=== PATIENT | male | born 1990 | race Caucasian/White ===

== ENCOUNTER 2020-08-11 10:08 | Outpatient (REF) | payer MEDICAID, SELFPAY ==
--- NOTE | 2020-08-11 10:30 | EMG_ITS ---
Left median and ulnar motor and sensory studies were performed. Left radial sensory study was performed. Antecubital and brachial median and lateral sensory studies were performed and needle examination was performed on paraspinal and some limb muscles. IMPRESSION: 1. Mild left ulnar neuropathy across cubital tunnel. 2. No evidence of proximal neuropathy around shoulder. MD CARMELA Werner/PRICE / [id number]
== END 2020-08-11 10:09 | disposition home or self-care (01) ==
LOC: HO.NEURO 10:08
PROVIDERS: PCP Internal Medicine; Visit Provider Internal Medicine
DX: M25.512 Pain in left shoulder (principal)
CPT/HCPCS: 95860; 95886; 95910

== ENCOUNTER → 2020-08-26 09:53 | Outpatient (BNVA) | payer MEDICAID, SELFPAY | PROVIDERS: PCP Internal Medicine; Referring Provider Internal Medicine; Visit Provider Orthopaedic Surgery | DX: S43.439A Superior glenoid labrum lesion of unspecified shoulder, initial encounter (principal) | CPT/HCPCS: 99212 ==

== ENCOUNTER 2020-09-21 07:59 | Day surgery (SDC) | payer MEDICAID, SELFPAY ==
[2020-09-16 09:45] VITALS: BMI 25.6
[2020-09-21] VITALS (7 sets, daily range): BP systolic 104–135; BP diastolic 49–83; PULSE 61–88; RESP 16–18; TEMP 36.2–36.5; O2SAT 94–99
[2020-09-21] MEDS: ceFAZolin Sodium/Dextrose,Iso 2 GM/50 ML PIGGYBACK IV (08:38)
--- NOTE | 2020-09-21 09:31 | MHC.SHP ---
Pre-Procedural Eval Section A The patient is an INPATIENT: No Changes since office visit: Yes Patient answered all questions; No Cold of Flu in the past 2 weeks, No New Medical Problems and No Changes in Medication The History & Physical has been completed within 30 days and I have reviewed it.: Yes Section B Chief Complaint: superior glenoid lesion Allergies: Allergies Allergy/AdvReac Type Severity Reaction Status Date / Time aspirin [ASA] AdvReac Mild HIVES Verified 09/16/20 10:11 Plan Patient has been examined and remains a candidate for the planned procedure
--- NOTE | 2020-09-21 10:52 | HO.ANESPROP2 ---
[facility] Past Medical History Medical History (Updated 09/16/20 @ 10:09 by Deidra Banegas) Hx of transfusion of whole blood Internal derangement of left shoulder Lab test negative for COVID-19 virus SLAP tear of shoulder Family History Family History Mother No problems noted. Father No problems noted. Surgical History Surgical History (Updated 09/16/20 @ 09:53 by Deidra Banegas) History of esophagogastroduodenoscopy (EGD) Social History Social History Are you a primary child care centre director to a significant other at home: No Do you presently have visiting nurse or other home services: No Smoking Status: Never smoker Use of substances other than those prescribed or required for medical reasons: No Have you been hit, kicked, punched, or otherwise hurt by someone within the past year? If so, by whom?: No Advance Directives Information Provided: No Recently lost weight without trying: No Current occupational status: unemployed Current occupation: Right Handed Meds Allergies Allergy/AdvReac Type Severity Reaction Status Date / Time aspirin [ASA] AdvReac Mild HIVES Verified 09/16/20 10:11 Home Medications Medication Instructions Recorded Confirmed Type cyclobenzaprine PO 08/25/20 09/01/20 History gabapentin 100 mg capsule 100 mg PO BID 08/25/20 09/16/20 History tramadol 50 mg tablet 50 mg PO DAILY PRN 08/25/20 09/16/20 History Exam Exam Date and Time: September 21, 2020 1052 Height,Weight and Vital Signs: Height 5 ft 2 in Weight 63.503 kg Last Vital Signs Temp 97.7 F 09/21/20 08:34 Pulse 61 09/21/20 08:34 Resp 18 09/21/20 08:34 BP 118/61 09/21/20 08:34 Pulse Ox 99 09/21/20 08:34 Airway Mallampati Class: III TM Dist: >3cm Neck ROM: Full Heart: RRR Assessment and Plan Assessment Anesthesia Assessment: Anesthesia Plan Discussed Final Anesthetic Review NPO: Yes ASA Class: I Final Preanesthetic Review: Consent Obtained/Reviewed Anesthetic Plan Anesthetic Plan: GA and Regional Block (Supraclavicular) Disposition: Standard PACU
--- NOTE | 2020-09-21 11:45 | P.BOP_ITS ---
Brief Operative Note Date of Service: 09/21/20 Pre-op diagnosis: left shoulder SLAP tear Post-op diagnosis: other (left shoulder synovitis and acj arthritis) Procedure: anterior interval synovectomy and distal clavicle excision Implants: none Surgeon: Héctor Sotomayor MD Anesthesia: GETA and regional Clinical Nursing Director: Deborah Ireland Estimated blood loss (mL): 10 Tourniquet time (min): 0 IV fluids (mL): 500 Urine output (mL): 0 Pathology: none sent Condition: stable Disposition: PACU
--- NOTE | 2020-09-21 12:35 | P.POSTANES_ITS ---
Post Anesthesia Evaluation Post Anesthesia Evaluation Vital Signs: Vital Signs Temp Pulse Resp BP Pulse Ox 09/21/20 12:20 97.1 F 74 16 128/83 09/21/20 12:05 79 16 123/74 94 09/21/20 11:50 69 18 104/55 L 96 09/21/20 11:44 76 18 122/73 96 09/21/20 11:40 70 18 109/49 L 96 09/21/20 11:35 97.4 F 88 16 135/80 96 09/21/20 08:34 97.7 F 61 18 118/61 99 Anesthesia: Nerve Block (Left supraclavicular block) and General Endotracheal- GETA Mental Status: Awake Pain Control: Satisfactory Nausea/Vomiting: None Hydration: Adequate Anesthesia-Related Issues: No Anes. Related Issues
--- NOTE | 2020-09-21 13:13 | PC.NURSE ---
instructions done with finger lift operator
--- NOTE | 2020-09-26 14:15 | OP_ITS ---
SURGEON: Héctor Sotomayor MD INDICATIONS: This is a 30-year-old gentleman with ongoing left shoulder pain. He was consented to undergo operative intervention after the failure of conservative measures. Preoperative MRI was unremarkable for significant labral injury, but there was AC joint inflammation. He was consented to undergo possible SLAP repair and shoulder arthroscopy. PREOPERATIVE DIAGNOSIS: Left shoulder SLAP tear. POSTOPERATIVE DIAGNOSIS: PROCEDURE PERFORMED: Anterior interval synovectomy with distal clavicle excision. ESTIMATED BLOOD LOSS: 10 mL. COMPLICATIONS: None. ANESTHESIA: Regional and general. ASSISTANTS: OLIVIA Eldridge. SPECIMENS: POSTOPERATIVE DIAGNOSES: Left shoulder synovitis and acromioclavicular joint arthritis. FLUIDS: 500. PROCEDURE IN DETAIL: The patient was brought to the operating room, placed in the beach chair position. All bony prominences were well padded ad he was prepped and draped in standard sterile fashion. Time-out was called to identify proper site, proper procedure, proper surgeon. IV antibiotics per weight was administered. I began by making a stab incision posterolaterally and placing my blunt trocar atraumatically into the glenohumeral joint. I then established an outside-in anterosuperior portal under direct visualization. I insufflated the joint, placed my 30-degree arthroscope. He had no chondral lesions to speak of and the undersurface of the rotator cuff was pristine. Biceps and labral anchor and circumferential labral was pristine. There was notable anterior interval synovitis. The subscapularis was intact. I therefore debrided out the synovitis of the anterior interval and assessed the labrum both distally, both circumferentially and at the anchor and the biceps as it dove into the groove and it was pristine. After the synovectomy, I went to subacromial space and assessed the AC joint. This was arthritic and therefore I performed a 5 mm distal clavicle excision with a bur through the anterior portal. Once this was done, I irrigated copiously, removed all instrumentation and closed the portals with nylon. The patient was placed in sterile dressing, awakened from anesthesia, brought to recovery room in stable condition. There were no known complications. GRAFT OR IMPLANTS: None. MD HAYDEN Vinson/TRACIL / [id number]
== END 2020-09-21 13:13 | disposition home or self-care (01) ==
PROVIDERS: PCP Internal Medicine; Visit Provider Orthopaedic Surgery
PROC: (CPT 29805; principal; 2020-09-21 09:50)
DX: M65.812 Other synovitis and tenosynovitis, left shoulder (principal); M19.012 Primary osteoarthritis, left shoulder
CPT/HCPCS: 29824; 29822; J0330; J0690; J1100; J2250; J2405; J3010

== ENCOUNTER → 2020-10-05 13:18 | Outpatient (BNVA) | payer MEDICAID, SELFPAY | PROVIDERS: PCP Internal Medicine; Referring Provider Internal Medicine; Visit Provider Physician Assistant | DX: M19.012 Primary osteoarthritis, left shoulder (principal); M65.812 Other synovitis and tenosynovitis, left shoulder | CPT/HCPCS: 99212 ==

== ENCOUNTER → 2020-12-08 13:52 | Outpatient (BNVA) | payer MEDICAID, SELFPAY | PROVIDERS: Visit Provider Orthopaedic Surgery | DX: M19.012 Primary osteoarthritis, left shoulder (principal); M65.812 Other synovitis and tenosynovitis, left shoulder | CPT/HCPCS: 99212 ==

== ENCOUNTER 2021-01-18 11:00 | Outpatient (RCR) | payer MEDICAID, SELFPAY ==
--- NOTE | 2020-10-21 16:15 | MHC.PT.EP ---
[facility] [place] Office [place] Office [place] Office [address] Joselito Lima [address] [phone] F: [phone] F: [phone] F: [phone] F: [phone] Physical Therapy Plan of Care Date of Evaluation: 10/21/20 Date of Surgery: 09/21/20 Diagnosis: L SHLDER SURGERY (ANTERIOR INTERVAL SYNOVECTOMY AND DCE) ON 09/21/20 Assessment: Pt IS 30 YO RHD M REFERRED TO PT S/P L SHLDER SURGERY PER ORTHO (SUNOVECTOMY AND DCE) ON 09/21/20. Pt REPORTS INITIAL INJURY TO SHLDER AT WORK IN NOV 2019. HAD PT HERE FROM 01/18-03/01/20 WITHOUT RELIEF, HAD CORTISONE INJECTION. NOW PRESENTS WEARING SLING (Pt REPORTS WAS TOLD BY ORTHO TO WEAR ONLY WHEN NEEDED) WITH DECREASED L SHLDER ROM AND STRENGTH WITH PAIN AND LIMITED FUNCTIONAL USE. SHOULD BENEFIT FROM PT TO ADDRESS THESE ISSUES Frequency and Duration: The patient will be seen 2X/WK X 6 WKS Short Term Goals: 1. INCREASED AWARENESS SHLDER CARE 2. NO USE SLING 3. IMPROVED SLEEP Alf Goals: 1. L SHLDER AROM L SHLDER FLEX TO 150 DEGREES, ABD TO 150, ER TO 75 DEGREES AT 90 DEGREES ABD 2. I HEP WITH DC EX PLAN 3. RTW 4, INCREASED L SHLDER STRENGTH 1 MM GRADE 5. IMPROVED SPADI Treatment Plan: Modalities to reduce pain, spasms and effusion. Manual therapy to restore motion and function. Therapeutic exercise to improve strength and flexibility. Neuromuscular re-education for posture and balance. Therapeutic activities to return to functional activities of daily living. Electronically signed by: MERRY SALEH PT Please sign and return to therapist. Thank you for your referral.
--- NOTE | 2021-02-25 10:55 | MHC.PT.DC ---
[facility] [place] Office [place] Office [place] Office [address] Joselito Lima [address] [phone] F: [phone] F: [phone] F: [phone] F: [phone] Physical Therapy Discharge Report Diagnosis: L SHLDER SURGERY (ANTERIOR INTERVAL SYNOVECTOMY AND DCE) ON 09/21/20 Date of Surgery: 09/21/20 Date of Evaluation: 10/21/20 Date of Discharge: 02/25/21 Treatments to Date: 11 Cancellations to Date: 0 No Shows to Date: 0 Discharge Status: Patient Elected to Stop Discharge Summary: Pt LAST SEEN ON 01/18/21 WHEN HE REPORTED (PER NOTE BY LUPILLO MAHONEY PTA) INTEMITTENT PAIN IN SHLDER (BUT WAS ABLE TO PARTICIPATE IN PT SESSION WITH EXERCISE PROGRAM). Pt HAD FU WITH ORTHO THEN HE CALLED TO SAY HAVING MRI AND ORTHO WANTED HIM TO STOP TREATMENT (PER ANEESH AT INTERNATIONAL LOGISTICS COORDINATOR) ALTHOUGH THE LAST OFFICE NOTE FROM ORTHO REPORTS:Freddy Sotomayor MD: incomplete improvement after shoulder arthroscopy. I reveiwed MRI again and intra-operative findings. No evidence of ongoing internal derangement. Will continue strengtheing and re-assess at the 6 month time point. Electronically signed by: MERRY SALEH PT Please sign and return to therapist. Thank you for your referral.
--- NOTE | 2021-02-25 10:57 | MHC.PT.DC ---
[facility] [place] Office [place] Office [place] Office [address] Joseilto Lima [address] [phone] F: [phone] F: [phone] F: [phone] F: [phone] Physical Therapy Discharge Report Diagnosis: L SHLDER SURGERY (ANTERIOR INTERVAL SYNOVECTOMY AND DCE) ON 09/21/20 Date of Surgery: 09/21/20 Date of Evaluation: 10/21/20 Date of Discharge: 02/25/21 Treatments to Date: 11 Cancellations to Date: 0 No Shows to Date: 0 Discharge Status: Patient Elected to Stop Discharge Summary: Pt LAST SEEN ON 01/18/21 WHEN HE REPORTED (PER NOTE BY LUPILLO MAHONEY PTA) INTEMITTENT PAIN IN SHLDER (BUT WAS ABLE TO PARTICIPATE IN PT SESSION WITH EXERCISE PROGRAM). Pt HAD FU WITH ORTHO THEN HE CALLED TO SAY HAVING MRI AND ORTHO WANTED HIM TO STOP TREATMENT (PER ANEESH AT MOBILE CRANE OPERATOR) ALTHOUGH THE LAST OFFICE NOTE FROM ORTHO REPORTS:Freddy Sotomayor MD: incomplete improvement after shoulder arthroscopy. I reveiwed MRI again and intra-operative findings. No evidence of ongoing internal derangement. Will continue strengtheing and re-assess at the 6 month time point. Electronically signed by: MERRY SALEH PT Please sign and return to therapist. Thank you for your referral.
== END 2021-02-25 10:55 | disposition other institution (70) ==
LOC: HO.PT 11:00
PROVIDERS: PCP Internal Medicine; Visit Provider Physician Assistant
DX: M65.812 Other synovitis and tenosynovitis, left shoulder (principal); M19.012 Primary osteoarthritis, left shoulder
CPT/HCPCS: 97110; 97140; 97162; 97530

== ENCOUNTER → 2021-01-19 13:26 | Outpatient (BNVA) | payer MEDICAID, SELFPAY | PROVIDERS: Visit Provider Orthopaedic Surgery | DX: M65.812 Other synovitis and tenosynovitis, left shoulder (principal) | CPT/HCPCS: 99212 ==

== ENCOUNTER → 2021-04-06 14:43 | Outpatient (BNVA) | payer MEDICAID, SELFPAY | PROVIDERS: Visit Provider Orthopaedic Surgery | DX: M65.812 Other synovitis and tenosynovitis, left shoulder (principal); S43.432A Superior glenoid labrum lesion of left shoulder, initial encounter; X58.XXXA Exposure to other specified factors, initial encounter; Y93.9 Activity, unspecified; Y92.9 Unspecified place or not applicable; Y99.8 Other external cause status; M24.812 Other specific joint derangements of left shoulder, not elsewhere classified; Z88.6 Allergy status to analgesic agent | CPT/HCPCS: 99212 ==

== ENCOUNTER 2021-04-27 13:29 | Outpatient (REF) | payer MEDICAID, SELFPAY ==
--- NOTE | ~2021-04-27 | MR_ITS ---
EXAMINATION: MR SHOULDER WITH CONTRAST, LEFT CLINICAL INFORMATION: Left shoulder pain. COMPARISON: 08/03/2020 TECHNIQUE: MRI of the shoulder was performed following the intra-articular administration of a dilute gadolinium-containing solution (arthrogram) on a high-field scanner. FINDINGS: ROTATOR CUFF: There is subscapularis insertional tendinosis, possibly ill-defined undersurface partial tearing demonstrated on axial image 14 which is a new finding. The coracohumeral distance also appears narrow, approximately 5-6 mm. The supraspinatus, infraspinatus, and teres minor tendons appear intact. No muscle atrophy or fatty infiltration. BICEPS: Normal. CORACOACROMIAL ARCH: The undersurface of the acromion is curved with no subacromial spur. There is mild acromioclavicular osteoarthritis which is more conspicuous. LABRUM/CAPSULE: There is superficial fraying of the posterior superior labrum demonstrated on axial images 10-11 which is a new finding. The labrum appears otherwise intact. GLENOHUMERAL JOINT/MARROW: There is new cyst formation of the posterior greater tuberosity, as well as the anterior superior humeral head. MR/MR shoulder LT w con IMPRESSION: There are new small cysts at the posterior aspect of the greater tuberosity and possible superficial fraying of the posterior superior labrum. These findings can be associated with internal impingement, typically in throwing athletes. The infraspinatus and supraspinatus tendons appear intact. There is subscapularis insertional tendinosis and possible undersurface fraying which is a new finding. The coracohumeral distance is narrow, approximately 5-6 mm. Clinically correlate for symptoms of subcoracoid impingement. There is a new degenerative cyst of the anterior superior humeral head. Mild acromioclavicular osteoarthritis.
--- NOTE | ~2021-04-27 | FL_ITS ---
EXAMINATION: XR ARTHROGRAM SHOULDER, LEFT CLINICAL INFORMATION: Synovitis and tenosynovium by this left shoulder COMPARISON: MRI of August 03, 2020 and plain film study of August 03, 2020. TECHNIQUE: Fluoroscopic guided intra-articular injection of the left shoulder. FINDINGS: Informed consent was obtained from the patient prior to the procedure. During this process, the procedure and potential alternatives were explained, along with the intended outcome and benefits. The risks of the procedure, as well as the risk of not doing the procedure, were discussed. The patient was given the opportunity to ask questions regarding the procedure and appeared competent to make medical decisions. A signed consent form which documents this discussion was placed in the medical record. Using sterile technique and fluoroscopic guidance a 22-gauge spinal needle was directed down onto the inferior third of the left glenohumeral joint. Contrast was injected demonstrating intra-articular positioning of the needle. A total of 18 mL of a mixture of 20 mL of normal saline with 0.1 mL of Gadavist was then injected into the left shoulder joint. Patient tolerated procedure without difficulty. FLUOROSCOPY TIME: 1.2 minutes DOSE AREA PRODUCT: 4.613 Gy-cm2 (raymond-centimeter squared) FL/FL arthrogram shoulder LT IMPRESSION: Fluoroscopic guided intra-articular injection of contrast for MRI.
== END 2021-04-27 13:30 | disposition home or self-care (01) ==
LOC: HO.XRAY 13:29
PROVIDERS: Visit Provider Orthopaedic Surgery
DX: M65.812 Other synovitis and tenosynovitis, left shoulder (principal)
CPT/HCPCS: 23350; 73040; 73222; A9585

== ENCOUNTER → 2021-06-02 11:18 | Outpatient (BNVA) | payer MEDICAID, SELFPAY | PROVIDERS: Visit Provider Orthopaedic Surgery ==

== ENCOUNTER → 2021-06-05 08:15 | Outpatient (BNVA) | payer MEDICAID, SELFPAY | PROVIDERS: Visit Provider Orthopaedic Surgery | DX: M65.812 Other synovitis and tenosynovitis, left shoulder (principal) | CPT/HCPCS: 99212 ==

== ENCOUNTER → 2021-08-07 14:52 | Outpatient (BNVA) | payer MEDICAID, SELFPAY | PROVIDERS: PCP Internal Medicine; Visit Provider Orthopaedic Surgery | DX: M67.912 Unspecified disorder of synovium and tendon, left shoulder (principal) | CPT/HCPCS: 99212 ==

== ENCOUNTER 2023-10-17 08:05 | Outpatient (REF) | payer MEDICAID, SELFPAY ==
[2023-10-17 11:35] LABS: MANUAL DIFF FLAG NO
[2023-10-17 12:04] LABS: Estimated Average Glucose 105 mg/dL; Hemoglobin A1c % 5.3 % (<6.0)
[2023-10-17 12:05] LABS: Basophils Percent Auto 0.4 % (0-2); Eosinophils Absolute Auto 0.3 X10*3/uL (0.0-0.4); Eosinophils Percent Auto 5.5 % (0-4); Hematocrit 46.5 % (42.0-52.0); Hemoglobin 15.1 g/dl (14.0-18.0); Imm Gran Abs Auto 0.02 X10*3/uL (0.00-0.03); Imm Gran Pct Auto 0.4 % (0.0-0.4); Lymphocytes Absolute Auto 1.1 X10*3/uL (1.2-4.9); Lymphocytes Percent Auto 19.8 % (20-40); Mean Corpuscular HGB Conc 32.5 g/dl (31.0-36.0); Mean Corpuscular Volume 89.4 fL (80.0-98.0); Mean Platelet Volume 11.8 fL (9.4-12.4); Monocytes Absolute Auto 0.5 X10*3/uL (0.1-1.2); Monocytes Percent Auto 9.6 % (2-11); Neutrophils Absolute Auto 3.4 x10*3/uL (2.0-8.3); Neutrophils Percent Auto 64.3 % (45-73); Platelet Count 223 X10*3/uL (160-400); Red Cell Distribution Width 12.8 % (11.0-16.0); White Blood Count 5.3 X10*3/uL (4.8-10.8)
[2023-10-17 12:26] LABS: Alanine Aminotransferase 38 U/L (0-40); Albumin Level 4.5 g/dL (3.5-5.0); Alkaline Phosphatase 84 U/L (39-117); Anion Gap 14 (12-20); Aspartate Amino Transferase 25 U/L (5-37); Bilirubin Direct 0.2 mg/dL (0.0-0.5); Bilirubin Total 0.3 mg/dL (0.0-1.0); Blood Urea Nitrogen 16 mg/dL (9-16); Calcium 9.4 mg/dL (8.4-10.2); Carbon Dioxide 26 mmol/L (22-29); Chloride 105 mmol/L (96-108); Cholesterol 111 mg/dL (<200); Estimated Glomerular Filt Rate > 60; Glucose Random 91 mg/dL (60-115); HDL Cholesterol 33 mg/dL (>40); LDL Cholesterol Calculated 65 mg/dL (<100); Potassium 3.8 mmol/L (3.3-5.1); Sodium 141 mmol/L (135-145); Total Protein 7.7 g/dL (6.5-8.0); Triglycerides 66 mg/dL (<150)
[2023-10-17 13:46] LABS: CT PCR NOT DETECTED (Not Detect.); NG PCR NOT DETECTED (Not Detect.)
[2023-10-18 07:39] LABS: HIV AB/AG Nonreactive (Nonreactive); HIV Num 1 0.04 S/CO (0.00-0.99); ~HepC Num1 0.08 S/CO (0.00-0.79); ~Hepatitis C Antibody Nonreactive (Nonreactive)
[2023-10-21 09:28] LABS: RPR Rapid Plasma Reagin NON-REACTIVE (NON-REACTIVE)
== END 2023-10-17 08:06 | disposition home or self-care (01) ==
LOC: HO.HHCL 08:05
PROVIDERS: Visit Provider Internal Medicine
DX: Z00.00 Encounter for general adult medical examination without abnormal findings (principal); Z11.4 Encounter for screening for human immunodeficiency virus [HIV]; Z11.3 Encounter for screening for infections with a predominantly sexual mode of transmission
CPT/HCPCS: 0353U; 36415; 80048; 80061; 80076; 83036; 85025; 86592; 86803; 87389

== ENCOUNTER 2023-10-19 04:51 | Emergency (ER) | payer MEDICAID, SELFPAY ==
[2023-10-19 04:51] VITALS: BP 113/76; PULSE 85; RESP 18; TEMP 37.1; O2SAT 96; BMI 28.9
--- NOTE | 2023-10-19 05:05 | PC.NURSE ---
Patient presenting to ED from home for evaluation of nausea and diarrhea x3 days. Patient is also endorses diffuse abdominal pain. Patient reports taking Pepto Bismol prior to arrival to ED. Dr. Jasmine at bedside assessing patient. 20 G IV line placed in L AC, labs drawn and sent to lab for processing. Patient medicated per JAN. Call rodriguez within rodriguez within patient's reach.
--- NOTE | 2023-10-19 05:11 | ED.ABDPAIN ---
HPI - Abdominal Pain General Chief Complaint: Abdominal Pain Stated Complaint: Gen Med Time Seen by Provider: 10/19/23 04:54 History of Present Illness HPI narrative: Patient is a 33-year-old male presents today with having nausea vomiting diarrhea generalized malaise. There has been no change in patient's diet no new antibiotics no travel history patient is from home. Diarrhea mostly yellow watery in color. No blood. Positive diffuse abdominal aches. No focal pain. No abdominal surgery done in the past Related Data Home Medications Medication Instructions Recorded Confirmed cyclobenzaprine [Flexeril] PO 08/25/20 09/01/20 gabapentin 100 mg capsule 100 mg PO BID 08/25/20 09/16/20 Previous Rx's Medication Instructions Recorded oxycodone-acetaminophen 5 mg-325 1 tab PO Q12H PRN pain 7 days #14 10/25/20 mg tablet (Percocet) tabs naproxen 500 mg tablet,delayed 500 mg PO BID PRN pain #60 tabs 06/05/21 release (EC-Naprosyn) ondansetron 4 mg disintegrating 4 mg PO TID PRN nausea and 10/19/23 tablet vomiting 5 days #10 tabs Allergies Allergy/AdvReac Type Severity Reaction Status Date / Time aspirin [ASA] AdvReac Mild HIVES Verified 10/19/23 04:57 Review of Systems Review of Systems Positive nausea positive diarrhea positive generalized malaise Yes all other systems are reviewed and are negative FOR[facility] Past Medical History Attestation statement: The following information was validated with the patient. Medical History Lab test negative for COVID-19 virus Hx of transfusion of whole blood SLAP tear of shoulder Internal derangement of left shoulder Surgical History History of shoulder surgery History of esophagogastroduodenoscopy (EGD) Family History Family History Mother No problems noted. Father No problems noted. Social History Social History Are you a primary child care lead teacher to a significant other at home: No Do you presently have visiting nurse or other home services: No Smoked in Last 30 Days: No Use of substances other than those prescribed or required for medical reasons: No Advance Directives: No Advance Directives Information Provided: No Current occupational status: unemployed Current occupation: Right Handed Physical Exam ED Vital Signs: Vital Signs - 24 hr 10/19/23 04:51 10/19/23 05:26 Temperature 98.8 F 98.3 F Pulse Rate 85 70 Respiratory Rate 18 16 Blood Pressure 113/76 140/69 H Pulse Oximetry 96 98 Oxygen Delivery Method Room Air Room Air BMI result Body Mass Index 28.9 Appearance: Alert. Oriented X3. No acute distress. Eyes: Pupils equal, round and reactive to light. ENT: Pharynx normal. Neck: Normal inspection. Neck supple. No lymph nodes noted. No crepitus CVS: Normal heart rate and rhythm. Pulses normal. Normal S1 and S2 Respiratory: No respiratory distress. Breath sounds normal. No Wheezing. No rales Abdomen: Soft and nontender. No rigidity. No distention. good BS x4 Skin: Skin warm and dry. Normal skin color. Normal skin turgor. Extremities: No lower extremity edema. Neurovascular intact to all extremities. No Lacerations. No Rash Neuro: Oriented X 3. No motor deficit. No sensory deficit. Moving all extermities. No slurred speech Medical Decision Making Medical Decision Making [facility] Narrative: Patient has nausea and diarrhea repeat abdominal exam is soft nontender. [place] the risk of appendicitis is low. Question related to food. No recent antibiotics. No systemic complaints. Electrolytes unremarkable given IV fluids Zofran for nausea with good results. Will discharge home Differential Diagnosis Differential Diagnoses: The differential diagnosis associated with the presentation includes Appendicitis, gastroenteritis, diverticulitis, Admission/Observation Consideration of admission/observation: Escalation of care including admission/observation considered No need for admission is patient well appearing symptom improved Lab Data [facility] Lab Attestation statement: I reviewed the patient's lab results. 10/19/23 05:14 10/19/23 05:14 Labs: Lab Results 10/19/23 Range/Units 05:14 WBC 5.9 (4.8-10.8) X10*3/uL RBC 5.28 (4.60-5.80) X10*6/uL Hgb 15.2 (14.0-18.0) g/dl Hct 45.3 (42.0-52.0) % MCV 85.8 (80.0-98.0) fL MCH 28.8 (27.0-33.0) pg MCHC 33.6 (31.0-36.0) g/dl RDW 12.5 (11.0-16.0) % Plt Count 190 (160-400) X10*3/uL MPV 10.6 (9.4-12.4) fL Immature Gran % (Auto) 0.3 (0.0-0.4) % Neut % (Auto) 77.8 H (45-73) % Lymph % (Auto) 9.0 L (20-40) % [place] % (Auto) 10.7 (2-11) % Eos % (Auto) 2.0 (0-4) % Baso % (Auto) 0.2 (0-2) % Lymph # (Auto) 0.5 L (1.2-4.9) X10*3/uL [place] # (Auto) 0.6 (0.1-1.2) X10*3/uL Eos # (Auto) 0.1 (0.0-0.4) X10*3/uL Baso # (Auto) 0.0 (0.0-0.2) X10*3/uL Abs Immat Gran (auto) 0.02 (0.00-0.03) X10*3/uL Absolute Neuts (auto) 4.6 (2.0-8.3) x10*3/uL Absolute Nucleated RBC 0.000 (0.0-0.012) X10*3/uL Nucleated RBC % (auto) 0.0 (0.0-0.2) /100WBC Sodium 141 (135-145) mmol/L Potassium 3.9 (3.3-5.1) mmol/L Chloride 111 H (96-108) mmol/L Carbon Dioxide 21 L (22-29) mmol/L Anion Gap 13 (12-20) BUN 14 (9-16) mg/dL Creatinine 0.95 (0.5-1.4) mg/dL Estim Creat Clear Calc 97.8 Estimated GFR > 60 Random Glucose 107 (60-115) mg/dL Calcium 9.2 (8.4-10.2) mg/dL Total Bilirubin 0.3 (0.0-1.0) mg/dL AST 27 (5-37) U/L ALT 45 H (0-40) U/L Alkaline Phosphatase 84 (39-117) U/L Total Protein 7.8 (6.5-8.0) g/dL Albumin 4.5 (3.5-5.0) g/dL Lipase 12 (8-78) U/L Prescription Management I considered prescription management with: Antibiotic (Not need) Medications Administered Discontinued Medications Generic Name Dose Route Start Last Admin Trade Name Freq PRN Reason Stop Dose Admin Sodium Chloride 1,000 mls @ 999 mls/hr 10/19/23 05:15 10/19/23 06:21 Ns IV 10/19/23 06:15 Infused .Q1H1M FARZAD Infusion Ketorolac Tromethamine 15 mg 10/19/23 05:10 10/19/23 05:19 Ketorolac Tromethamine 15 Mg/Ml Vial IVPUSH 10/19/23 05:11 15 mg ONCE ONE Administration Ondansetron HCl 4 mg 10/19/23 05:10 10/19/23 05:19 Ondansetron Hcl 4 Mg/2 Ml Vial IVPUSH 10/19/23 05:11 4 mg ONCE ONE Administration Discharge Plan Discharge Clinical Impression: Nausea, Diarrhea Patient Disposition: Home, Self-Care Instructions: Acute Nausea and Vomiting (ED), Acute Diarrhea (ED) Prescriptions: New ondansetron 4 mg tablet,disintegrating 4 mg PO TID PRN (Reason: nausea and vomiting) 5 Days Qty: 10 0RF No Action oxycodone-acetaminophen [Percocet] 5-325 mg tablet 1 tab PO Q12H PRN (Reason: pain) 7 Days Qty: 14 0RF gabapentin 100 mg capsule 100 mg PO BID cyclobenzaprine PO naproxen [EC-Naprosyn] 500 mg tablet,delayed release (DR/EC) 500 mg PO BID PRN (Reason: pain) Qty: 60 0RF Referrals: Brenda Robbins MD [Primary Care Provider] - 10/21/23
[2023-10-19 05:19] LABS: Basophils Percent Auto 0.2 % (0-2); Eosinophils Absolute Auto 0.1 X10*3/uL (0.0-0.4); Hematocrit 45.3 % (42.0-52.0); Hemoglobin 15.2 g/dl (14.0-18.0); Imm Gran Abs Auto 0.02 X10*3/uL (0.00-0.03); Imm Gran Pct Auto 0.3 % (0.0-0.4); Lymphocytes Absolute Auto 0.5 X10*3/uL (1.2-4.9); MANUAL DIFF FLAG NO; Mean Corpuscular HGB Conc 33.6 g/dl (31.0-36.0); Mean Corpuscular Hemoglobin 28.8 pg (27.0-33.0); Mean Corpuscular Volume 85.8 fL (80.0-98.0); Mean Platelet Volume 10.6 fL (9.4-12.4); Monocytes Absolute Auto 0.6 X10*3/uL (0.1-1.2); Monocytes Percent Auto 10.7 % (2-11); Neutrophils Absolute Auto 4.6 x10*3/uL (2.0-8.3); Neutrophils Percent Auto 77.8 % (45-73); Platelet Count 190 X10*3/uL (160-400); Red Blood Count 5.28 X10*6/uL (4.60-5.80); Red Cell Distribution Width 12.5 % (11.0-16.0); White Blood Count 5.9 X10*3/uL (4.8-10.8)
[2023-10-19] MEDS: Ketorolac Tromethamine 15 MG/ML VIAL IVPUSH (05:19)
[2023-10-19] MEDS: ondansetron HCL 4 MG/2 ML VIAL IVPUSH (05:19)
[2023-10-19] MEDS: 0.9 % Sodium Chloride 1,000 ML 999 ML IV (05:20)
[2023-10-19 05:26] VITALS: BP 140/69; PULSE 70; RESP 16; TEMP 36.8; O2SAT 98
[2023-10-19 05:35] LABS: Alanine Aminotransferase 45 U/L (0-40); Albumin Level 4.5 g/dL (3.5-5.0); Alkaline Phosphatase 84 U/L (39-117); Anion Gap 13 (12-20); Aspartate Amino Transferase 27 U/L (5-37); Bilirubin Total 0.3 mg/dL (0.0-1.0); Blood Urea Nitrogen 14 mg/dL (9-16); Calcium 9.2 mg/dL (8.4-10.2); Carbon Dioxide 21 mmol/L (22-29); Chloride 111 mmol/L (96-108); Creatinine Clr Calc Pharmacy 97.8; Estimated Glomerular Filt Rate > 60; Glucose Random 107 mg/dL (60-115); Lipase 12 U/L (8-78); Potassium 3.9 mmol/L (3.3-5.1); Sodium 141 mmol/L (135-145); Total Protein 7.8 g/dL (6.5-8.0)
[2023-10-19 06:00] VITALS: BP 130/70; PULSE 79; RESP 18; TEMP 36.8; O2SAT 98
== END 2023-10-19 06:52 | disposition home or self-care (01) ==
PROVIDERS: Emergency Provider Emergency Medicine Emergency Medical Services; PCP Internal Medicine
DX: R11.2 Nausea with vomiting, unspecified (principal); R19.7 Diarrhea, unspecified
CPT/HCPCS: 36415; 80053; 83690; 85025; 96361; 96374; 96375; 99284; 99285; J1885; J2405

== ENCOUNTER 2023-11-28 13:41 | Outpatient (AMB) | payer MEDICAID, SELFPAY ==
--- NOTE | 2023-11-28 13:42 | A.OFFVIS_ITS ---
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 Accompanied by: Self / Same As Patient Allergies aspirin [ASA] Adverse Reaction (Mild, Verified 11/28/23 13:43) HIVES Medication List - Last Reconciled 11/28/23 by Oksana Grimaldo MD clotrimazole-betamethasone 1-0.05 % 1 appl topical BID 2 weeks cyclobenzaprine (Flexeril) PO PRN gabapentin 100 mg PO BID PRN naproxen (EC-Naprosyn) 500 mg PO BID PRN omeprazole 40 mg PO QAM tramadol 50 mg PO Q12H PRN HPI HPI Comments History of Present Illness Details 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 Father No problems noted. Social History Are you a primary foster care case manager to a significant other at home: No Do you presently have visiting nurse or other home services: No Current occupational status: unemployed Current occupation: Right Handed Review of Systems Const All systems reviewed & are unremarkable except as noted in HPI and below Reports no additional complaints Eyes Reports no additional complaints ENT Reports no additional complaints Card Denies dyspnea Resp Denies cough and Denies dyspnea GI Reports no additional complaints Musc Reports no additional complaints Skin/Breast Denies rash and Denies unusual bruising Neuro Reports no additional complaints Psych Reports no additional complaints Endo Reports no additional complaints Franco/Lymph Reports no additional complaints Aller/Immun Reports no additional complaints Physical Exam Const General: healthy appearing, no acute distress and well developed Orientation/consciousness: patient oriented x3 HEENT Head: Yes normocephalic and Yes atraumatic Eyes Conjunctivae: conjunctivae normal Neck Neck: Yes normal visual inspection Chest Chest palpation & inspection: normal inspection of the chest Resp Effort & Inspection: normal respiratory effort Cardio Rate: regular rate GI Inspection: Yes normal to inspection Palpation (GI): Soft to palpation Penis: uncircumcised, non retractile foreskin and phimosis Scrotum: scrotum normal Skin General skin exam: no rashes or lesions noted Neuro General: patient oriented x3 Extrem General: No pedal edema Psych Appearance: grossly normal Affect: normal affect Assessment & Plan Assessment & Plan (1) Phimosis: Code(s): N47.1 - Phimosis (2) Balanitis: Code(s): N48.1 - Balanitis Plan lotrisone cream sched circumcision Orders: Orders AMB Urinalysis Automated 11/28/23 Z13.9 - Encounter for screening, unspecified Medications: New clotrimazole-betamethasone 1-0.05 % 1 appl topical BID 45 grams 1RF 2 weeks Coding Level of Care Code New Pt Level 4 (21435) Diagnoses Phimosis N47.1 Balanitis N48.1
== END 2023-11-28 14:46 | disposition home or self-care (01) ==
PROVIDERS: PCP Internal Medicine; Visit Provider Urology
DX: N47.1 Phimosis (principal); N48.1 Balanitis
CPT/HCPCS: 99204

== ENCOUNTER → 2023-11-28 13:41 | Outpatient (BNVA) | payer MEDICAID, SELFPAY | PROVIDERS: PCP Internal Medicine; Visit Provider Urology | DX: N47.1 Phimosis (principal); N48.1 Balanitis | CPT/HCPCS: 99202 ==

== ENCOUNTER 2023-12-24 06:04 | Day surgery (SDC) | payer MEDICAID, SELFPAY ==
[2023-12-18 13:18] VITALS: BMI 29.6
[2023-12-24 06:21] VITALS: BMI 30.1
[2023-12-24 06:24] VITALS: PULSE 56; RESP 18; TEMP 36.1; O2SAT 98
[2023-12-24] MEDS: Lactated Ringers 1,000 ML 50 ML IVCONT (06:43)
--- NOTE | 2023-12-24 07:16 | P.CONAN_ITS ---
HPI - Anesthesia Eval Consult details Narrative: for circumcision PMFSH Active Problems Active Problems: All Active Problems (Updated 11/28/23 @ 23:58 by Oksana Grimaldo MD) Balanitis (Acute) Phimosis (Acute) Dysfunction of left rotator cuff (Acute) Osteoarthritis of left acromioclavicular joint (Acute) Synovitis of left shoulder (Acute) SLAP tear of shoulder (Acute) Past Medical History Medical History Lab test negative for COVID-19 virus Hx of transfusion of whole blood SLAP tear of shoulder Internal derangement of left shoulder Family History Family History Mother No problems noted. Father No problems noted. Family history of problems with anesthesia: No Surgical History Surgical History History of shoulder surgery History of esophagogastroduodenoscopy (EGD) History of Problems with Anesthesia: No Social History Social History Are you a primary physician assistant primary care to a significant other at home: No Do you presently have visiting nurse or other home services: No Patient Tobacco Use Status: Never used Tobacco Use of substances other than those prescribed or required for medical reasons: No Are you DNR?: No Advance Directives: No Advance Directives Information Provided: Yes Current occupational status: unemployed Current occupation: Right Handed Meds Allergies Allergy/AdvReac Type Severity Reaction Status Date / Time aspirin [ASA] AdvReac Mild HIVES Verified 11/28/23 13:43 Active Medications: Current Medications Lactated Ringer's (Lr) 1,000 mls @ 50 mls/hr IVCONT .Q20H FARZAD Last Admin: 12/24/23 06:43 Dose: 50 mls/hr Home Medications Medication Instructions Recorded Confirmed Last Taken Type cyclobenzaprine [Flexeril] 1 tab PO BID PRN Muscle Spasm 11/28/23 12/24/23 U nknown History omeprazole 40 mg capsule,delayed 40 mg PO QAM 11/28/23 12/24/23 Unknown History release tramadol 50 mg tablet 50 mg PO Q12H PRN severe pain 11/28/23 12/24/23 Unknown History clotrimazole-betamethasone 1 1 appl topical BID PRN Rash 12/24/23 12/24/23 Unknown History %-0.05 % topical cream Exam Height,Weight and Vital Signs: Height 5 ft 2 in Weight 74.571 kg Last Vital Signs Temp 96.9 F 12/24/23 06:24 Pulse 56 12/24/23 06:24 Resp 18 12/24/23 06:24 Pulse Ox 98 12/24/23 06:24 O2 Del Method Room Air 12/24/23 06:24 Airway Mallampati Class: I TM Dist: >3cm Neck ROM: Full Loose/Missing/Broken Teeth: No Heart: ok Lungs: ok Assessment and Plan Assessment Anesthesia Assessment: Anesthesia Plan Discussed and Chart Reviewed Final Anesthetic Review Family History of Problems with Anesthesia: No History of Problems with Anesthesia: No NPO: Yes ASA Class: II Final Preanesthetic Review: No Changes in Pt Med Stat, Meds/Allgs Chart Reviewed, Consent Obtained/Reviewed and Anes Risks/Benef Reviewed Patient Risk: Low Anesthetic Plan Anesthetic Plan: GA and Agree w/ Assess. and Plan Disposition: Standard PACU
--- NOTE | 2023-12-24 07:19 | MHC.SHP ---
Pre-Procedural Eval Section A - 24 Hr Update-Section A only Date of Service: 12/24/23 The patient is an INPATIENT: No The patient has been examined within 24 hours of the surgical procedure. The History & Physical has been completed within 30 days and I have reviewed it.: Yes Section B - Complete if H&P > 30 days Chief Complaint: Phimosis Allergies: Allergies Allergy/AdvReac Type Severity Reaction Status Date / Time aspirin [ASA] AdvReac Mild HIVES Verified 11/28/23 13:43 Plan Diagnosis/Plan: Unchanged I have reviewed the history and physical and performed a pertinent physical examination on my patient. No changes have occurred unless specified. Circumcision Time Spent With Patient Time: Total time managing care of this patient today ____ minutes.
--- NOTE | 2023-12-24 09:39 | W.PM.OPN ---
Operative Note Operative Note Date of Service: 12/24/23 Narrative: PreOperative Diagnosis:? ? Balanitis, phimosis Post Operative Diagnosis:?Balanitis, phimosis Procedure:?Circumcision Surgeon:?Dr Oksana Grimaldo Anesthesia:? General Procedure: After informed consent was verified the patient was brought to the operating room and placed in a supine position.? Anesthesia was performed per protocol. The patient was prepped and draped in the usual sterile fashion. Safety pause time-out was performed. Antibiotics confirmed. Penile block was performed. The foreskin was phimotic and not able to be retracted so a dorsal slit was done and the foreskin was retracted and the glans was further cleansed with betadine. With the foreskin put back over the glans a circumferential incision is made at the level of the jara with the 15 blade knife and cautery. The fore skin was then retracted and a circumferential incision was made 0.5 cm below the jara. The foreskin is removed with cautery. Hemostasis was maintained with bugbee cautery. The skin is closed in 4 quadrants with 4-0 chromic, each quadrant closed with interrupted 4-0 chromic, bacitracin ointment was used over the incision and incision covered with cling. The patient tolerated the procedure well and was transferred to the recovery area upon completion. Complications: None
[2023-12-24 09:40] VITALS: BP 118/61; PULSE 78; RESP 16; TEMP 36.6; O2SAT 100
[2023-12-24 09:45] VITALS: BP 112/59; PULSE 67; RESP 16; O2SAT 100
[2023-12-24 09:50] VITALS: BP 107/54; PULSE 67; RESP 16; O2SAT 97
[2023-12-24 09:55] VITALS: BP 100/64; PULSE 67; RESP 18; O2SAT 96
[2023-12-24 10:10] VITALS: BP 118/64; PULSE 72; RESP 18; TEMP 36.6; O2SAT 97
== END 2023-12-24 11:01 | disposition home or self-care (01) ==
PROVIDERS: PCP Internal Medicine; Visit Provider Urology
PROC: (CPT 54161; principal; 2023-12-24 07:30)
DX: N47.1 Phimosis (principal); N48.1 Balanitis; Z79.1 Long term (current) use of non-steroidal anti-inflammatories (NSAID); Z79.899 Other long term (current) drug therapy; Z88.8 Allergy status to other drugs, medicaments and biological substances; Z98.890 Other specified postprocedural states
CPT/HCPCS: 54161; 88304; J0690; J2250; J2704; J2795; J3010

== ENCOUNTER → 2023-12-24 06:04 | Outpatient (BNV) | payer MEDICAID, SELFPAY | PROVIDERS: PCP Internal Medicine; Visit Provider Urology | DX: N47.1 Phimosis (principal) | CPT/HCPCS: 54161 ==

== ENCOUNTER 2024-01-16 15:38 | Outpatient (AMB) | payer MEDICAID, SELFPAY ==
--- NOTE | 2024-01-16 16:16 | MHC.OFFVIS ---
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 Exam circumcision-incision is well healed I reviewed pathology results--Foreskin, excision: Lichen sclerosus (balanitis xerotica obliterans); negative for malignancy. Follow-up p.r.n. [facility] Medical History Lab test negative for COVID-19 virus Hx of transfusion of whole blood SLAP tear of shoulder Internal derangement of left shoulder Surgical History History of shoulder surgery History of esophagogastroduodenoscopy (EGD) Family History Mother No problems noted. Father No problems noted. Social History Are you a primary home care scheduler to a significant other at home: No Do you presently have visiting nurse or other home services: No Comment: counts correct Patient Tobacco Use Status: Never used Tobacco Current occupational status: unemployed Current occupation: Right Handed Review of Systems Const All systems reviewed & are unremarkable except as noted in HPI and below Reports no additional complaints Eyes Reports no additional complaints ENT Reports no additional complaints Card Reports no additional complaints Resp Reports no additional complaints GI Reports no additional complaints Reports as per HPI Musc Reports no additional complaints Skin/Breast Reports system reviewed and no additional complaints, except as documented Neuro Reports no additional complaints Psych Reports no additional complaints Endo Reports no additional complaints Franco/Lymph Reports no additional complaints Aller/Immun Reports no additional complaints Results Reviewed Results Reviewed: Collected: 12/24/23 Location: [facility] Received: 12/24/23 Diagnosis Foreskin, excision: Lichen sclerosus (balanitis xerotica obliterans); negative for malignancy. Clinical History Phimosis Microscopic Description Microscopic sections reviewed. Material Received Foreskin Gross Description Received in formalin labeled ?foreskin? is a 6.0 x 4.0 cm butterfly-shaped portion of wrinkled cheema-pink foreskin excised to a maximum depth of 0.5 cm. Sectioning reveals edematous cheema-pink cut surfaces. No erosions or ulcers are identified. Assessment & Plan Assessment & Plan (1) Status post routine circumcision: Code(s): Z98.890 - Other specified postprocedural states Plan Follow-up p.r.n. Patient Instructions: The patient had an opportunity to ask questions regarding treatment plan. All questions were answered. The patient is aware they should contact our office by phone for worsening of their current condition or the appearance of new symptoms. Compliance is encouraged with any medications and followup testing that is ordered. It is a privilege to be allowed the opportunity to participate in the urologic care of your patient. If you have any questions or concerns regarding treatment for the above conditions please do not hesitate to contact me. The office telephone contact is [phone]. This note is constructed in part using voice recognition software. While every effort has been made to ensure accuracy marketing agent errors may have been included. Yours sincerely, Oksana Grimaldo MD Coding Level of Care Code Est Pt Level 3 (03036) Diagnoses Status post routine circumcision Z98.890
--- NOTE | 2024-01-16 16:21 | A.OFFVIS_ITS ---
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 Father No problems noted. 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
== END 2024-01-16 16:24 | disposition home or self-care (01) ==
PROVIDERS: PCP Internal Medicine; Visit Provider Urology
DX: Z98.890 Other specified postprocedural states (principal)
CPT/HCPCS: 99213

== ENCOUNTER → 2024-01-16 15:38 | Outpatient (BNVA) | payer MEDICAID, SELFPAY | PROVIDERS: PCP Internal Medicine; Visit Provider Urology | DX: Z48.89 Encounter for other specified surgical aftercare (principal) | CPT/HCPCS: 99212 ==

== ENCOUNTER 2024-11-10 12:40 | Outpatient (REF) | payer MEDICAID, SELFPAY ==
--- NOTE | ~2024-11-10 | XR_ITS ---
EXAMINATION: XR HUMERUS LEFT HISTORY: mid upper arm pain, concern for FB COMPARISON: There are no prior studies available for comparison. FINDINGS: AP and lateral views of the left humerus are submitted. Osseous mineralization is normal. There is no fracture or dislocation. The visualized shoulder and elbow joint spaces are preserved. The soft tissues are unremarkable. No radiopaque foreign body is identified. XR/XR humerus LT IMPRESSION: Unremarkable examination of the left humerus. No radiopaque foreign body is identified. Electronically signed by: Brian Cordero MD 11/10/2024 01:01 PM SORAYA
== END 2024-11-10 12:41 | disposition home or self-care (01) ==
LOC: HO.HHCX 12:40
PROVIDERS: Visit Provider Family Medicine
DX: M79.602 Pain in left arm (principal); M54.50 Low back pain, unspecified
CPT/HCPCS: 73060

== ENCOUNTER → 2024-11-10 12:40 | Outpatient (BNV) | payer MEDICAID, SELFPAY | PROVIDERS: Visit Provider Radiology Diagnostic Radiology | DX: M79.602 Pain in left arm (principal) | CPT/HCPCS: 73060 ==

== ENCOUNTER 2024-11-10 13:20 | Outpatient (REF) | payer MEDICAID, SELFPAY ==
[2024-11-10 16:22] LABS: Hematocrit 43.8 % (42.0-52.0); Hemoglobin 14.6 g/dl (14.0-18.0); Mean Corpuscular HGB Conc 33.3 g/dl (31.0-36.0); Mean Corpuscular Volume 86.9 fL (80.0-98.0); Mean Platelet Volume 11.6 fL (9.4-12.4); Platelet Count 239 X10*3/uL (160-400); Red Blood Count 5.04 X10*6/uL (4.60-5.80); Red Cell Distribution Width 12.8 % (11.0-16.0)
[2024-11-10 16:28] LABS: Estimated Average Glucose 108 mg/dL; Hemoglobin A1C 135.6154 umol/L; Hemoglobin A1c % 5.4 % (<6.0); Total Hemoglobin (HGBA1C) 3855.0081 umol/L
[2024-11-10 17:08] LABS: Alanine Aminotransferase 64 U/L (0-40); Albumin Level 4.7 g/dL (3.5-5.0); Anion Gap 12 (12-20); Aspartate Amino Transferase 37 U/L (5-37); Bilirubin Direct 0.2 mg/dL (0.0-0.5); Bilirubin Total 0.4 mg/dL (0.0-1.0); Blood Urea Nitrogen 16 mg/dL (9-16); Calcium 9.9 mg/dL (8.4-10.2); Carbon Dioxide 26 mmol/L (22-29); Chloride 107 mmol/L (96-108); Cholesterol 151 mg/dL (<200); Estimated Glomerular Filt Rate > 60; Glucose Random 89 mg/dL (60-115); HDL Cholesterol 41 mg/dL (>40); LDL Cholesterol Calculated 90 mg/dL (<100); Sodium 141 mmol/L (135-145); Total Protein 7.9 g/dL (6.5-8.0); Triglycerides 100 mg/dL (<150)
[2024-11-10 17:22] LABS: Alkaline Phosphatase 77 U/L (39-117)
[2024-11-10 17:31] LABS: Free T4 (Free Thyroxine) 0.96 ng/dL (0.71-1.85); Thyroid Stimulating Hormone 0.94 uIU/mL (0.32-4.0); Vitamin D 25-OH Total 41.7 ng/mL (>30)
[2024-11-11 02:26] LABS: CT PCR NOT DETECTED (Not Detect.); NG PCR NOT DETECTED (Not Detect.)
[2024-11-11 09:12] LABS: Hepatitis A Antibody IgG Nonreactive (Nonreactive); ~Hepatitis A Antibody IgG 0.23 S/CO (0.00-0.99)
[2024-11-11 09:29] LABS: HBS Num1 433.05 mIU/mL (0-7.99); HBc Num1 0.04 S/CO (0.00-0.79); HBsAGNum1 0.39 S/CO (0.00-0.99); HIV AB/AG Nonreactive (Nonreactive); HIV Num 1 0.04 S/CO (0.00-0.99); Hepatitis B Core Antibody Nonreactive (Nonreactive); Hepatitis B Surface Antigen Negative (Negative); ~HepC Num1 0.08 S/CO (0.00-0.79); ~Hepatitis B Surface Antibody REACTIVE (Nonreactive); ~Hepatitis C Antibody Nonreactive (Nonreactive)
[2024-11-12 11:28] LABS: RPR Rapid Plasma Reagin NON-REACTIVE (NON-REACTIVE)
== END 2024-11-10 13:21 | disposition home or self-care (01) ==
LOC: HO.HHCL 13:20
PROVIDERS: Visit Provider Family Medicine
DX: R13.10 Dysphagia, unspecified (principal); M79.602 Pain in left arm; Z11.3 Encounter for screening for infections with a predominantly sexual mode of transmission
CPT/HCPCS: 73060; 80048; 80061; 80076; 82306; 83036; 84439; 84443; 85027; 86592; 86704; 86706; 86708; 86803; 87340; 87389; 87491; 87591

== ENCOUNTER 2025-01-26 10:09 | Outpatient (REF) | payer MEDICAID, SELFPAY ==
--- NOTE | ~2025-01-26 | FL_ITS ---
EXAMINATION: XR FLUOROSCOPY ESOPHAGRAM CLINICAL INFORMATION: Dysphagia with solids x2 months. Reflux. COMPARISON: None TECHNIQUE: Fluoroscopic air contrast upper GI examination was performed utilizing standard techniques with thin and thick barium and effervescent granules. Numerous spot images were obtained. Several fluoroscopic image hold cine sequences were also obtained. FINDINGS: UPPER GI SERIES: Lateral cine images of the oropharynx and hypopharynx demonstrate normal swallow mechanism with normal epiglottic inversion and soft palate elevation. No laryngeal penetration, glottic or subglottic aspiration identified. No nasopharyngeal reflux present. A small anterior cervical web is present at the C4 level (RF 1-1, image 27). Hypopharyngeal structures appear normal without evidence of mass or diverticulum. There was no significant cricopharyngeal achalasia. Dual and single contrast images of the esophagus demonstrate normal caliber, contour, and mucosal pattern. No evidence of stricture, mass, or ulcerations identified. Esophageal peristalsis was mildly disordered. There is a small type I hiatus hernia. There is a nonobstructing, wide open Schatzki's ring. No significant gastroesophageal reflux was seen during the course of the examination and on reflux views. Dual contrast and single contrast images of the stomach demonstrated normal contour and rugal fold pattern. No evidence of mass or ulcer. Diffuse prominence of the areae gastricae noted. Contrast freely passed into the gastric antrum and duodenal bulb without delay. Single and air-contrast images of the duodenal bulb demonstrate no abnormality. The duodenal sweep has a normal appearance, course, and mucosal fold appearance. FLUOROSCOPY TIME: 3 minutes, 30 seconds Number of Spot Images:11 Number of cines obtained: 17 DOSE AREA PRODUCT: 376.1 uGy-m2 (microgray-meter squared) FL/FL barium swallow with air IMPRESSION: 1. 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 2. Mildly disordered esophageal motility. 3. Small type I hiatus hernia. Wide open Schatzki's ring present. 4. No definite gastroesophageal reflux identified during the course of the exam. 5. Mild thickening and prominence of the gastric areae gastricae, suggesting mild gastritis. Electronically signed by: Jeramie Gomez MD 01/26/2025 11:36 AM EDT
--- OUTSIDE RECORDS SUMMARY | 2025-01-26 12:03 | XMS_ITS | Encounter Summary ---
Author Organization [facility] Address [address] [place] [address] Care Team Providers Care Business Representative Name Role Phone Brenda Robbins MD Primary Care Provide r Reason for Visit * Reason Onset Date Comments Lab Orders 08/07/2023 Encounter Details Date Type Department Care Team ([facility] st Contact Info) Description 08/07/2023 Telephone [facility] [address] [place] [address] Brenda Robbins MD [address] [place] [address] Lab Orders Social History Tobacco Use Types Packs/Day Years Used Date Smoking Tobacco: Never Assessed Sex and Gender Information Value Date Recorded Sex Assigned at Male 09/03/2022 10:22 AM EDT Legal Sex Male 10:22 AM EDT Gender Identity Male 09/03/2022 10:22 AM EDT Sexual Orientation Straight 09/03/2022 10 :22 AM EDT documented as of this encounter Miscellaneous Notes * Telephone Encounter - Yoselyn Zee - 08/07/2023 8:30 AM EDT Tc from patient requesting lab orders. States he hasn't seen his PCP in a while and wants to get upto date. Patients last visit was on 08/31/22 tele recall. Details: TELE(Pt want a rutine labs/ talk to PCP regarding shoulder pain) documented in this encounter Plan of Treatment Upcoming Encounters Date Type Department Care Team (Late st Contact Info) Description 03/11/2025 11:00 AM EDT Office Visit [facility] [address] [place], [place] [phone] Brenda Robbins MD [address] [place] [address] documented as of this encounter Visit Diagnoses Not on filedocumented in this encounter Care Teams Business Representative Relationship Specialty Start Date End Date Brenda Robbins MD [address] [place] [phone] PCP - General Family Medicine 03/05/19 documented as of this encounter
--- OUTSIDE RECORDS SUMMARY | 2025-01-26 12:03 | XMS_ITS | Encounter Summary ---
Author Organization [employer] Address [address] [place] [address] Care Team Providers Care Department Head College Or University Name Role Phone Brenda Robbins MD Primary Care Provide r Reason for Visit * Reason Comments Pre-visit Planning SDOH screening compl eted on 11/10/2024 Encounter Details Date Type Department Care Team ([facility] st Contact Info) Description 01/12/2025 Patient Outreach [facility] [address] [place] [address] Brenda Robbins MD [address] [place] [address] Pre-visit Planning (SDOH screening completed on 11/10/2024) Social History Tobacco Use Types Packs/Day Years Used Date Smoking Tobacco: Never Passive Smoke Exposure: Never Smokeless Tobacco: Never Depression Answer Date Recorded Patient Health Questionnaire-9 Score 0 11/10/2024 Patient Health Questionnaire-9 Score 0 11/10/2024 Last PHQ-9: Questionnaire Data Not on file 0 11/10/2024 Housing Stability Answer Date Recorded What is your housing situation today? I have medina chávez 11/10/[address] you li ve. Do you have problems with any of the following? None of the above 11/10/2024 Food Insecurity Answer Date Recorded Within the past 12 months, y ou worried that your food would run out before you got money to buy more: Never True 11/10/2024 Within the past 12 months,th e food you bought just didn't last and you didn't have enough money to get more: Never True 05/2025 Transportation Answer Date Recorded In the past 12 months, has l ack of transportation kept you from medical appts, meetings, work or from getting things needed for daily living? No 11/10/2024 Utilities Answer Date Recorded In the past 12 months, has t he electric, gas, oil or water company threatened to shut off services in your home? No 11/10/2024 Depression Answer Date Recorded Patient Health Questionnaire-2 Score 0 11/10/2024 Internet Access Answer Date Recorded Internet Access Q1 Yes 11/10/2024 Internet Access Q2 Not on file 11/10/2024 Sex and Gender Information Value Date Recorded Sex Assigned at Male 09/03/2022 10:22 AM EDT Legal Sex Male 10:22 AM EDT Gender Identity Male 09/03/2022 10:22 AM EDT Sexual Orientation Straight 09/03/2022 10 :22 AM EDT documented as of this encounter Progress Notes * Eneida Thomas - 01/12/2025 9:18 AM EDT CC Eneida placed successful outbound call to patient for pre-visit planning. Patient name and confirmed. Patient confirms appt date and time, and has transportation. Biggest concern for appointment at this time is none Patient advised to bring to appointment a photo id and insurance card. Appropriate screenings completed in anticipation of appointment. documented in this encounter Plan of Treatment Upcoming Encounters Date Type Department Care Team (Late st Contact Info) Description 03/11/2025 11:00 AM EDT Office Visit [facility] [address] [place] [address] Brenda Robbins MD [address] [place] [address] documented as of this encounter Visit Diagnoses Not on filedocumented in this encounter Additional Health Concerns Assessment Noted Time PHQ-9 Depression Total Score: 0 11/10/19 25 11:59 AM EST documented as of this encounter Care Teams Department Head College Or University Relationship Specialty Start Date End Date Brenda Robbins MD [address] [place] [address] PCP - General Family Medicine 03/05/19 documented as of this encounter
--- OUTSIDE RECORDS SUMMARY | 2025-01-26 12:03 | XMS_ITS | Encounter Summary ---
Author Organization [employer] Address [address] [place] [address] Care Team Providers Care Professor Of Philosophy Name Role Phone Brenda Robbins MD Primary Care Provide r Encounter Details Date Type Department Care Team (Late st Contact Info) Description 01/15/2025 Population Health Risk Score [facility] (C[facility]) Department [address] [facility] [address] [place] [address] Provider, Population Health Generic Social History Tobacco Use Types Packs/Day Years [...] AM EDT documented as of this encounter Plan of Treatment Upcoming Encounters Date Type Department Care Team (Late st Contact Info) Description 03/11/2025 11:00 AM EDT Office Visit [facility] [address] [place] [phone] Brenda Robbins MD [address] [place] [address] documented as of this encounter Visit Diagnoses Not on filedocumented in this encounter Additional Health Concerns Assessment Noted Time PHQ-9 Depression Total Score: 0 11/10/19 25 11:59 AM EST documented as of this encounter Care Teams Professor Of Philosophy Relationship Specialty Start Date End Date Brenda Robbins MD [address] [place] [phone] PCP - General Family Medicine 03/05/19 documented as of this encounter
--- OUTSIDE RECORDS SUMMARY | 2025-01-26 12:03 | XMS_ITS | Encounter Summary ---
Author Organization [employer] Address [address] [place] [address] Care Team Providers Care Environmental Field Professional Name Role Phone Brenda Robbins MD Primary Care Provide r Encounter Details Date Type Department Care Team (Late st Contact Info) Description 11/27/2024 Orders Only [facility] [address] [place], [place] [phone] Brenda Robbins MD [address] [place], [place] [phone] Social History Tobacco Use Types Packs/Day Years [...] Description 03/11/2025 11:00 AM EDT Office Visit [facility] [address] [place] [phone] Brenda Robbins MD [address] [place] [phone] documented as of this encounter Visit Diagnoses Not on filedocumented in this encounter Additional Health Concerns Assessment Noted Time PHQ-9 Depression Total Score: 0 11/10/19 25 11:59 AM EST documented as of this encounter Care Teams Environmental Field Professional Relationship Specialty Start Date End Date Brenda Robbins MD [address] [place] [phone] PCP - General Family Medicine 03/05/19 documented as of this encounter
--- OUTSIDE RECORDS SUMMARY | 2025-01-26 12:03 | XMS_ITS | Encounter Summary ---
Author Organization [employer] Address [address] [place] [address] Care Team Providers Care Nutritional Chemist Name Role Phone Brenda Robbins MD Primary Care Provide r Reason for Visit * Reason Onset Date Comments Nurse Triage 10/26/2024 Encounter Details Date Type Department Care Team ([facility] st Contact Info) Description 10/26/2024 Telephone [facility] MEDICINE [address] [place] [address] Brenda Robbins MD [address] [place] [address] Nurse Triage Social History Tobacco Use Types Packs/Day Years Used Date Smoking Tobacco: Never Passive Smoke Exposure: Never Smokeless Tobacco: Never Depression Answer Date Recorded Patient Health Questionnaire-9 Score 0 10/15/2023 Patient Health Questionnaire-9 Score 0 10/15/2023 Last PHQ-9: Questionnaire Data Not on file 1 12/16/2022 Housing Stability Answer Date Recorded What is your housing situation today? I have medina chávez 10/15/[address] you li ve. Do you have problems with any of the following? None of the above 10/15/2023 Food Insecurity Answer Date Recorded Within the past 12 months, y ou worried that your food would run out before you got money to buy more: Never True 10/15/2023 Within the past 12 months,th e food you bought just didn't last and you didn't have enough money to get more: Never True 10/2023 Transportation Answer Date Recorded In the past 12 months, has l ack of transportation kept you from medical appts, meetings, work or from getting things needed for daily living? No 10/15/2023 Utilities Answer Date Recorded In the past 12 months, has t he electric, gas, oil or water company threatened to shut off services in your home? No 10/15/2023 Depression Answer Date Recorded Patient Health Questionnaire-2 Score 0 10/15/2023 Sex and Gender Information Value Date Recorded Sex Assigned at Male 09/03/2022 10:22 AM EDT Legal Sex Male 10:22 AM EDT Gender Identity Male 09/03/2022 10:22 AM EDT Sexual Orientation Straight 09/03/2022 10 :22 AM EDT documented as of this encounter Miscellaneous Notes * Telephone Encounter - Maricarmen Vazquez RN - 10/26/2024 1:17 PM EST Triage call with [facility] [place] [address]. Pt reports has had a sore throat due to difficulty with swallowing. Pt reports some increased pain at this time as well in shoulder, back and some headache pain. Neg for fever or RAMY sx. Pt is requesting to see provider to check the reason for thisswallowing difficulty . ASK apt with Dr. Crews 11/10/24 @ 1145am. Pt agrees with disposition. Insurance is verified as active prior to booking. Protocol Used: Swallowing Difficulty (Adult) Protocol-Based Disposition: See in Office or Video Visit within 3 Days Override (Final) Disposition: See in Office or Video Visit within 2 Weeks Override Reason: No appointments available Positive Triage Question: * Patient wants to be seen * All higher-acuity triage questions were negative Care Advice Discussed: * Reasons To Call Back - You have more questions * Telephone Encounter - Jessica Mccarty - 10/26/2024 12:58 PM EST Symptoms: Headache, Sore Throat, Back Pain - Not From Injury Outcome: Schedule a same-day appointment or talk to a nurse or provider today Reason: Caller denied all higher acuity questions The caller accepted this outcome. Please contact [facility] documented in this encounter Plan of Treatment Upcoming Encounters Date Type Department Care Team (Late st Contact Info) Description 03/11/2025 11:00 AM EDT Office Visit [facility] MEDICINE [address] [place] [address] Brenda Robbins MD [address] [place], [place] [phone] documented as of this encounter Visit Diagnoses Not on filedocumented in this encounter Additional Health Concerns Assessment Noted Time PHQ-9 Depression Total Score: 0 10/15/20 9:01 AM EST documented as of this encounter Care Teams Nutritional Chemist Relationship Specialty Start Date End Date Brenda Robbins MD [address] [place], [place] [phone] PCP - General Family Medicine 03/05/19 documented as of this encounter
--- OUTSIDE RECORDS SUMMARY | 2025-01-26 12:03 | XMS_ITS | Clinical Summary ---
Author Organization [email or web address] Address [address] [facility] 7[address] [place] [address] Care Team Providers Care Community Health Nurse Supervisor Name Role Phone Brenda Robbins MD Primary Care Provide r Allergies Active Allergy Reactions Criticality Noted Date Comments Aspirin Hives Low 12/05/2012 Other reaction(s): Rash Medications cetirizine (ZyrTEC) 10 MG tablet Take 1 tablet (10 mg) by mouth Once per day. 90 tablet 3 5 11/10/19 26 Active fluticasone (Flonase) 50 MCG/ACT nasal spray Administer 2 sprays into each nostril Once per day. Shake gently. Before first use, prime pump. After use, clean tip and replace cap. 16 g 3 5 11/10/19 26 Active omeprazole (PriLOSEC) [address] Jose ons:Heartburn Take 1 capsule (40 mg) by mouth before breakfast and before evening meal. Do not crush or chew. 180 capsule 3 5 11/10/19 26 Active Active Problems Problem Noted Date Diagnosed Date Low vision 10/15/2023 Health care maintenance 10/15/2023 Synovitis of left shoulder 08/29/202308/29 Heartburn 08/29/2023 08/29/2023 Assessment & Plan (10/15/2023 1:14 PM EST): I advise patient to avoid NSAIDs, spicy and acid food, I advise to eat at the same time every day, I advise to elevate the head of the bed and take medications as prescribe Contact dermatitis 08/29/2023 08/29/2023 Chronic left shoulder pain 08/29/202308/29 Assessment & Plan (10/15/2023 1:14 PM EST): I will c/w tramadol PRN patient will be under contract Chronic gastritis 08/29/2023 08/29/2023 Arthritis of left acromioclavicular joint 202208/29/2023 Anxiety 08/29/2023 08/29/2023 Resolved Problems Problem Noted Date Diagnosed Date Resolved Date Phimosis of penis 10/15/2023 11/10/2024 Visual impairment 08/29/2023 08/29/2023 11/10/2024 Encounters Date Type Department Care Team Description 01/19/2025 Telephone [facility] MEDICINE [address] [place] [phone] Brenda Robbins MD No Show 01/15/2025 Population Health Risk Score [facility] () Department [address] [phone] Provider, Population Health Generic 01/12/2025 Patient Outreach [facility] MEDICINE [address] [place] [phone] Brenda Robbins MD Pre-visit Planning ([facility] screening completed on 11/10/2024) 11/27/2024 Orders Only [facility] MEDICINE [address] [place] [phone] Brenda Robbins MD 11/27/[address] [phone] Brenda Robbins MD Med Refill; Needs appt w/PCP 11/10/2024 11:45 AM EST Office Visit [address] [phone] Rosa Chambers DO Dysphagia, unspecified type (Primary Dx); Left arm pain; Encounter for screening examination for sexually transmitted infection; Heartburn 11/10/2024 Travel from Last 3 Months Family History Medical History Relation Name Comments Diabetes Father Relation Name Status Comments Father Social History Tobacco Use Types Packs/Day Years Used Date Smoking Tobacco: Never Passive Smoke Exposure: Never Smokeless Tobacco: Never Tobacco Cessation:Counseling Given: Not Answered Depression Answer Date Recorded Patient Health Questionnaire-9 [...] Orientation Straight 09/03/2022 10 :22 AM EDT Last Filed Vital Signs Vital Sign Reading Time Taken Comments Blood Pressure 132/70 11/10/2024 11:58 AM EST Pulse 84 11/10/2024 11:58 AM EST Temperature 36.3 ??C (97.3 ??F) 11/10/2024 11:[address] Respiratory Rate 20 11/10/2024 11:58 AM EST Oxygen Saturation 98% 10/15/2023 8:50 AM EST Inhaled Oxygen Concentration - - Weight 78.9 kg (174 lb) 11/10/2024 11:58 AM EST Height 157.5 cm (5' 2 ) 11/10/2024 11:58 AM EST Body Mass Index 31.83 11/10/2024 11:58 AM EST Plan of Treatment Upcoming Encounters Date Type Department Care Team (Late st Contact Info) Description 03/11/2025 11:00 AM EDT Office Visit [facility] MEDICINE [address] [place], [place] [phone] Brenda Robbins MD [address] [place], [place] [phone] Health Maintenance Due Date Last Done Comments Family Planning (PISQ) 2007 DTaP/Tdap/Td Vaccines (1 - Tdap) 2011 Hepatitis B Vaccines (1 of 3 - 19+ 3-dose series) 2011 COVID-19 Vaccine (1 - 2023-2 5 season) 2024 Influenza Vaccine (#1) 2024 Alcohol/Substance Use Screening 11/10/2025 11/10/2024 Depression Screening 11/10/2025 11/10/2024, 11/10/2024 SDOH Screening 11/10/2025 11/10/2024 Tobacco Screening 11/10/2025 11/10/2024 Zoster Vaccines (1 of 2) 2042 RSV Patients and Patients Aged 60 years or older (1 - 1-dose 75+ series) 2067 HIV Screening Completed 11/10/2024, 10/17/2023 Hepatitis C Screening Completed 11/10/2024 , 10/17/2023 HIB Vaccines Aged Out No longer eligi ble based on patient's age to complete this topic HPV Vaccines Aged Out No longer eligi ble based on patient's age to complete this topic Hepatitis A Vaccines Aged Out No long er eligible based on patient's age to complete this topic IPV Vaccines Aged Out No longer eligi ble based on patient's age to complete this topic Meningococcal Vaccine Aged Out No shravan donte eligible based on patient's age to complete this topic Pneumococcal Vaccine: Pediatrics (0 to 5 Years) and At-Risk Patients (6 to 49) Years) Aged Out No longer eligible b ased on patient's age to complete this topic RSV under 20 months Aged Out No longe r eligible based on patient's age to complete this topic Rotavirus Vaccines Aged Out No longer eligible based on patient's age to complete this topic Procedures Procedure Name Priority Date/Time Associated Diagnosis Comments FL ESOPHAGUS BARIUM SWALLOW WITH AIR Routine 01/26/2025 10:10 AM EDT HEPATITIS B CORE AB TOTAL Routine 11/10/2024 1:25 PM EST Dysphagia, unspecified type Left arm pain Encounter for screening examination for sexually transmitted infection HEPATITIS A ANTIBODY, TOTAL Routine 11/10/2024 1:25 PM EST Dysphagia, unspecified type Left arm pain Encounter for screening examination for sexually transmitted infection HEPATITIS B SURFACE ANTIBODY, QUALITATIVE Routine 11/10/2024 1:25 PM EST Dysphagia, unspecified type Left arm pain Encounter for screening examination for sexually transmitted infection RPR (MONITOR) W/REFL TITER Routine 11/10/2024 1:25 PM EST Dysphagia, unspecified type Left arm pain Encounter for screening examination for sexually transmitted infection HEPATITIS C AB W/REFL TO HCV RNA, QN, PCR Routine 11/10/2024 1:25 PM EST Dysphagia, unspecified type Left arm pain Encounter for screening examination for sexually transmitted infection HIV 1/2 ANTIGEN/ANTIBODY, FOURTH GENERATION W/RFL Routine 11/10/2024 1:25 PM EST Dysphagia, unspecified type Left arm pain Encounter for screening examination for sexually transmitted infection HEPATITIS B SURFACE ANTIGEN, EIA Routine 11/10/2024 1:25 PM EST Dysphagia, unspecified type Left arm pain Encounter for screening examination for sexually transmitted infection BASIC METABOLIC PANEL Routine 11/10/2024 1:25 PM EST Dysphagia, unspecified type Left arm pain Encounter for screening examination for sexually transmitted infection CBC Routine 11/10/2024 1:25 PM EST Dysphagia, unspecified type Left arm pain Encounter for screening examination for sexually transmitted infection HEMOGLOBIN A1C Routine 11/10/2024 1:25 PM EST Dysphagia, unspecified type Left arm pain Encounter for screening examination for sexually transmitted infection HEPATIC FUNCTION PANEL Routine 11/10/2024 1:25 PM EST Dysphagia, unspecified type Left arm pain Encounter for screening examination for sexually transmitted infection VITAMIN D,25-OH,TOTAL,IA Routine 11/10/2024 1:25 PM EST Dysphagia, unspecified type Left arm pain Encounter for screening examination for sexually transmitted infection TSH Routine 11/10/2024 1:25 PM EST Dysphagia, unspecified type Left arm pain Encounter for screening examination for sexually transmitted infection LIPID PANEL, STANDARD Routine 11/10/2024 1:25 PM EST Dysphagia, unspecified type Left arm pain Encounter for screening examination for sexually transmitted infection T4, FREE Routine 11/10/2024 1:25 PM EST Dysphagia, unspecified type Left arm pain Encounter for screening examination for sexually transmitted infection CHLAMYDIA/N. GONORRHOEAE RNA, TMA, UROGENITAL Routine 11/10/2024 1:25 PM EST Dysphagia, unspecified type Left arm pain Encounter for screening examination for sexually transmitted infection XR HUMERUS LEFT Routine 11/10/2024 12:40 PM EST Left arm pain from Last 3 Months Results * FL Esophagus Barium Swallow w/Air (01/26/2025 10:10 AM EDT) Anatomical Region Laterality Modality Head, Neck Radiographic Lore ging 01/26/2025 10:1 0 AM EDT Narrative 01/26/2025 11:38 AM EDT ? [facility] ?[address] ?[place] [address] ? Fluoroscopy Report ? Signed ? Patient: Osei Conrad,Heraclio L ?MR#: [id number] ?? [id number] ? : 1990 ?Acct:[id number] ? Age/Sex: 34 / M ?ADM Date: 03/25/25 ? Loc: HO.XRAY ? Attending Dr: Rosa Chambers DO ? Ordering Physician: Rosa Chambers DO ?? Date of Service: 01/26/25 ?? Procedure(s): FL barium swallow with air ?? Accession Number(s): [id number] ? cc: Rosa Chambers DO; Physician,Unknown ? EXAMINATION: ?? XR FLUOROSCOPY ESOPHAGRAM ? CLINICAL INFORMATION: ?? Dysphagia with solids x2 months. Reflux. ? COMPARISON: ?? None ? TECHNIQUE: ?? Fluoroscopic air contrast upper GI examination was performed utilizing ?? standard techniques with thin and thick barium and effervescent ?? granules. Numerous spot images were obtained. Several fluoroscopic ?? image hold cine sequences were also obtained. ? FINDINGS: ? UPPER GI SERIES: ?? Lateral cine images of the oropharynx and hypopharynx demonstrate ?? normal swallow mechanism with normal epiglottic inversion and soft ?? palate elevation. No laryngeal penetration, glottic or subglottic ?? aspiration identified. No nasopharyngeal reflux present. A small ?? anterior cervical web is present at the C4 level (RF 1-1, image 27). ?? Hypopharyngeal structures appear normal without evidence of mass or ?? diverticulum. There was no significant cricopharyngeal achalasia. ? Dual and single contrast images of the esophagus demonstrate normal ?? caliber, contour, and mucosal pattern. No evidence of stricture, mass, ?? or ulcerations identified. Esophageal peristalsis was mildly disordered. ? There is a small type I hiatus hernia. There is a nonobstructing, wide ?? open Schatzki's ring. No significant gastroesophageal reflux was seen ?? during the course of the examination and on reflux views. ? Dual contrast and single contrast images of the stomach demonstrated ?? normal contour and rugal fold pattern. No evidence of mass or ulcer. ?? Diffuse prominence of the areae gastricae noted. Contrast freely passed ?? into the gastric antrum and duodenal bulb without delay. ? Single and air-contrast images of the duodenal bulb demonstrate no ?? abnormality. The duodenal sweep has a normal appearance, course, and ?? mucosal fold appearance. ? FLUOROSCOPY TIME: ?? 3 minutes, 30 seconds ? Number of Spot Images:11 ?? Number of cines obtained: 17 ? DOSE AREA PRODUCT: ?? 376.1 uGy-m2 (microgray-meter squared) ? FL/FL barium swallow with air ?? IMPRESSION: ?? 1. 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 ?? 2. Mildly disordered esophageal motility. ?? 3. Small type I hiatus hernia. Wide open Schatzki's ring present. ?? 4. No definite gastroesophageal reflux identified during the course of ?? the exam. ?? 5. Mild thickening and prominence of the gastric areae gastricae, ?? suggesting mild gastritis. ? Electronically signed by: ??Jeramie Gomez MD ??01/26/2025 11:36 AM EDT RP ? Dictated By: ?Jeramie Gomez MD ? Signed By: ?<Electronically signed by Jeramie Gomez MD in OV> ?01/26/25 1136 ? DD/ 1010 ? TD/TT: 01/26/25 1039 ? Immigration Consultant: ? Procedure Note Keily, Image - 01/26/2025 [place] [id number] Fluoroscopy Report Signed Patient: Heraclio Campos LMR#: [id number] : 1990Acct:[id number] Age/Sex: 34 / MADM Date: 01/26/25 Loc: [facility] Attending Dr: Rosa Chambers DO Ordering Physician: Rosa Chambers DO Date of Service: 01/26/25 Procedure(s): FL barium swallow with air Accession Number(s): [id number] cc: Rosa Chambers DO; Physician,Unknown EXAMINATION: XR FLUOROSCOPY ESOPHAGRAM CLINICAL INFORMATION: Dysphagia with solids x2 months. Reflux. COMPARISON: None TECHNIQUE: Fluoroscopic air contrast upper GI examination was performed utilizing standard techniques with thin and thick barium and effervescent granules. Numerous spot images were obtained. Several fluoroscopic image hold cine sequences were also obtained. FINDINGS: UPPER GI SERIES: Lateral cine images of the oropharynx and hypopharynx demonstrate normal swallow mechanism with normal epiglottic inversion and soft palate elevation. No laryngeal penetration, glottic or subglottic aspiration identified. No nasopharyngeal reflux present. A small anterior cervical web is present at the C4 level (RF 1-1, image 27). Hypopharyngeal structures appear normal without evidence of mass or diverticulum. There was no significant cricopharyngeal achalasia. Dual and single contrast images of the esophagus demonstrate normal caliber, contour, and mucosal pattern. No evidence of stricture, mass, or ulcerations identified. Esophageal peristalsis was mildly disordered. There is a small type I hiatus hernia. There is a nonobstructing, wide open Schatzki's ring. No significant gastroesophageal reflux was seen during the course of the examination and on reflux views. Dual contrast and single contrast images of the stomach demonstrated normal contour and rugal fold pattern. No evidence of mass or ulcer. Diffuse prominence of the areae gastricae noted. Contrast freely passed into the gastric antrum and duodenal bulb without delay. Single and air-contrast images of the duodenal bulb demonstrate no abnormality. The duodenal sweep has a normal appearance, course, and mucosal fold appearance. FLUOROSCOPY TIME: 3 minutes, 30 seconds Number of Spot Images:11 Number of cines obtained: 17 DOSE AREA PRODUCT: 376.1 uGy-m2 (microgray-meter squared) FL/FL barium swallow with air IMPRESSION: 1. 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 2. Mildly disordered esophageal motility. 3. Small type I hiatus hernia. Wide open Schatzki's ring present. 4. No definite gastroesophageal reflux identified during the course of the exam. 5. Mild thickening and prominence of the gastric areae gastricae, suggesting mild gastritis. Electronically signed by: Jeramie Gomez MD 01/26/2025 11:36 AM EDT Dictated By: Jeramie Gomez MD Signed By: <Electronically signed by Jeramie Gomez MD in OV> 01/26/25 1136 DD/ 1010 TD/TT: 01/26/25 1039 Immigration Consultant: us Rosa Chambers DO IMG FLUOROSCOPY PROCEDURES E dited Result - Final * Vitamin D, 25-Hydroxy, Total, Immunoassay (11/10/2024 1:25 PM EST) Vitamin D 25-OH Total 41.7 >30 ng/mL [facility] Comment:Health Based Referen ce Values*< 20 ng/mL Dfcdailsj75-93 ng/mL Insufficient> 30 ng/mL Sufficient*Dee PERALES. N Engl J Med. 2007;357:266-280Care must be taken in interpreting Vitamin D results fromdifferent laboratories and methodologies. Published datademonstrated that results from patients undergoinghemodialysis may show a negative bias when tested withvarious automated 25-OH vitamin D assays when compared toLC-MS/MS.When testing samples from patients whose predominant form ofVitamin D is Vitamin D2, such as patients receiving VitaminD2 supplementation, results that are subtherapeutic shouldbe confirmed with another method such as LC-MS/MS. Blood Venous blood specimen / Unknown 11/10/2024 1:25 PM EST 11/10/2024 4:00 PM EST Rosa Chambers DO LAB BLOOD ORDERABLES Final R esult Performing Organization Address [facility]/ZIP Co de Phone Number [facility] [address] [place] [phone] * Hepatitis C Antibody with Reflex to HCV, RNA, Quantitative, Real-Time PCR (11/10/2024 1:25 PM EST) Hepatitis C Antibody Nonreactive Nonreactive [facility] Comment:Antibodies to HCV no t detected; does not exclude early acuteHCV infection. Blood Venous blood specimen / Unknown 11/10/2024 1:25 PM EST 11/10/2024 4:00 PM EST Rosa Chambers DO LAB BLOOD ORDERABLES Final R esult Performing Organization Address [facility]/ZIP Co de Phone Number [facility] [address] [place] [phone] * Hepatitis A Antibody, Total (11/10/2024 1:25 PM EST) Hepatitis A Antibody IgG Nonreactive Nonreactive [facility] Blood Venous blood specimen / Unknown 11/10/2024 1:25 PM EST 11/10/2024 4:00 PM EST Rosa Chambers DO LAB BLOOD ORDERABLES Final R esult [facility] [address] [place] [phone] * Chlamydia/N. Gonorrhoeae RNA, TMA, Urogenitial (11/10/2024 1:25 PM EST) Pathologist [facility] CT PCR NOT DETECTED Not Detect. [facility] Comment:A not detected test result does not exclude the possibilityof infection because test results can be affected byimproper specimen collection, concurrent antibiotic therapy,or the number of organisms in the specimen which may bebelow the sensitivity of the test. As with many diagnostictests, results from the Xpert CT/NG assay should beinterpreted in conjunction with other laboratory andclinical data available to the clinician.Xpert CT/NG performance has not been evaluated in patientsless than 14 years of age. The assay should not be used forthe evaluationof suspected sexual abuse or for other medico-legalindications. Additional testing is recommended in anycircumstance when false positive or false negative resultscould lead to adverse medical, social or psychologicalconsequences. NG PCR NOT DETECTED Not Detect. [facility] Comment:A not detected test result does not exclude the possibilityof infection because test results can be affected byimproper specimen collection, concurrent antibiotic therapy,or the number of organisms in the specimen which may bebelow the sensitivity of the test. As with many diagnostictests, results from the Xpert CT/NG assay should beinterpreted in conjunction with other laboratory andclinical data available to the clinician.Xpert CT/NG performance has not been evaluated in patientsless than 14 years of age. The assay should not be used forthe evaluationof suspected sexual abuse or for other medico-legalindications. Additional testing is recommended in anycircumstance when false positive or false negative resultscould lead to adverse medical, social or psychologicalconsequences. Urine Urethral structure / Unknown 11/10/2024 1:25 PM EST 11/10/2024 3:59 PM EST Narrative [facility] - 11/11/2024 2:27 AM EST Urine us Rosa Chambers DO LAB MICROBIOLOGY - GENERAL O RDERABLES Final Result Performing Organization Address City/[facility]/ZIP Co de Phone Number [facility] [address] [place] [phone] * Hepatitis B surface antigen, EIA (11/10/2024 1:25 PM EST) Hepatitis B Surface Ag Negative Negative [facility] Blood Venous blood specimen / Unknown 11/10/2024 1:25 PM EST 11/10/2024 4:00 PM EST us Rosa Chambers DO LAB BLOOD ORDERABLES Final R esult Performing Organization Address [facility] Co de Phone Number [facility] [address] [place] [phone] * Hepatitis B Core Antibody, Total (11/10/2024 1:25 PM EST) Hepatitis B Core Antibody Nonreactive Nonreactive [facility] Blood Venous blood specimen / Unknown 11/10/2024 1:25 PM EST 11/10/2024 4:00 PM EST us Rosa Chambers DO LAB BLOOD ORDERABLES Final R esult Performing Organization Address City/[facility] Co de Phone Number [facility] [address] [place] [phone] * RPR (Monitor) with Reflex to??Titer (11/10/2024 1:25 PM EST) Pathologist [facility] RPR (Monitor) w/Refl Titer NON-REACTI VE NON-REACT KRISTIE [facility] Comment:THIS TEST WAS PERFOR MED AT:[email or web address] [place] [phone] BAJWA MD Rapid Plasma Reagin Ab Titer TNP [facility] Blood Venous blood specimen / Unknown 11/10/2024 1:25 PM EST 11/10/2024 4:00 PM EST us Rosa Chambers DO LAB BLOOD ORDERABLES Final R esult [facility] [address] [place] [phone] * HIV-1/2 Antigen and Antibodies, Fourth Generation, with Reflexes (11/10/2024 1:25 PM EST) Pathologist [facility] HIV AB/AG Nonreactive Nonreactive [facility] Comment:HIV-1 p24 Ag and/or HIV-1/HIV-2 Ab not detected.A test result that is nonreactive does not exclude thepossibility of exposure to or infection with HIV-1 and/orHIV-2. Nonreactive results in this assay for individualswith prior exposure to HIV-1 and/or HIV-2 may be due toantigen and antibody levels that are below the limit ofdetection of this assay.The Cerevo HIV Ag/Ab Combo assay result andsupplemental assay results should be interpreted inconjunction with the patient's clinical presentation,history and other laboratory results. If the results areinconsistent with clinical evidence, additional testing issuggested to confirm the result. Blood Venous blood specimen / Unknown 11/10/2024 1:25 PM EST 11/10/2024 4:00 PM EST us Rosa Chambers DO LAB BLOOD ORDERABLES Final R esult [facility] [address] [place] [phone] * Hepatitis B Surface Antibody, Qualitative (11/10/2024 1:25 PM EST) Pathologist [facility] ~Hepatitis B Surface Antibody REACTIVE Nonreactive [facility] Comment:REACTIVE: > 11.99 mI U/mL Blood Venous blood specimen / Unknown 11/10/2024 1:25 PM EST 11/10/2024 4:00 PM EST us Rosa Chambers DO LAB BLOOD ORDERABLES Final R esult [facility] [address] [place] [phone] * CBC (11/10/2024 1:25 PM EST) Pathologist [facility] White Blood Count 6.0 4.8 - 10.8 X10*3/uL [facility] Red Blood Count 5.04 4.60 - 5.80 X10*6/uL [facility] Hemoglobin 14.6 14.0 - 18.0 g/dl [facility] Hematocrit 43.8 42.0 - 52.0 % [facility] Mean Corpuscular Volume 86.9 80.0 - 98.0 fL [facility] Mean Corpuscular Hemoglobin 29.0 27.0 - 33.0 pg [facility] Mean Corpuscular HGB Conc 33.3 31.0 - 36.0 g/dl [facility] Red Cell Distribution Width 12.8 11.0 - 16.0 % [facility] Platelet Count 239 160 - 400 X10*3/uL [facility] Mean Platelet Volume 11.6 9.4 - 12.4 fL [facility] NRBC Pct Auto 0.0 0.0 - 0.2 /100WBC [facility] NRBC Abs Auto 0.000 0.0 - 0.012 X10*3/uL [facility] Blood Venous blood specimen / Unknown 11/10/2024 1:25 PM EST 11/10/2024 4:00 PM EST Rosa Millerdarrick DO LAB BLOOD ORDERABLES Final R esult Performing Organization Address [facility] Co de Phone Number [facility] [address] [place] [phone] * TSH (11/10/2024 1:25 PM EST) Thyroid Stimulating Hormone 0.94 0.32 - 4.0 uIU/mL [facility] Comment:TSH 3rd Generation ( [facility]) Blood Venous blood specimen / Unknown 11/10/2024 1:25 PM EST 11/10/2024 4:00 PM EST Rosa Reyes DO LAB BLOOD ORDERABLES Final R esult Performing Organization Address [facility] de Phone Number [facility] [address] [place] [phone] * T4, Free (11/10/2024 1:25 PM EST) Free T4 (Free Thyroxine) 0.96 0.71 - 1.85 ng/dL [facility] Blood Venous blood specimen / Unknown 11/10/2024 1:25 PM EST 11/10/2024 4:00 PM EST Rosa Reyes DO LAB BLOOD ORDERABLES Final R esult Performing Organization Address [facility] Co de Phone Number [facility] [address] [place] [phone] * Hemoglobin A1c (11/10/2024 1:25 PM EST) Hemoglobin A1c 5.4 <6.0 % [facility] Comment:Hemoglobin A1C Refer ence Range Adults: 4.8 - 6.0 % Non diabetic: < 6.0 % Goal: < 7.0 %Additional Action Suggested: > 8.0 %Note: Hemoglobin A1c results are invalid for patients with abnormal amounts of HbF. Blood transfusions may impact the HbA1c concentration in the patient sample. Estimated Average Glucose 108 mg/dL [facility] Comment:eAG = Estimated ave rage glucose which is %A1C expressed asaverage glucose, using the formula of the Q0S-FuweglnHobspao Glucose study (ADAG), Diabetes Care, Vol.31,#8,2007 Blood Venous blood specimen / Unknown 11/10/2024 1:25 PM EST 11/10/2024 4:00 PM EST Rosa Chambers DO LAB BLOOD ORDERABLES Final R esult Performing Organization Address City/[facility]/ZIP Co de Phone Number [facility] [address] [place] [phone] * (ABNORMAL) Hepatic Function Panel (11/10/2024 1:25 PM EST) Bilirubin, Total 0.4 0.0 - 1.0 mg/dL [facility] Bilirubin, Direct 0.2 0.0 - 0.5 mg/dL [facility] Aspartate Amino Transferase 37 5 - 37 U/L [facility] Alanine Aminotransferase 64(H) 0 - 40 U/L [facility] Total Protein 7.9 6.5 - 8.0 g/dL [facility] Albumin Level 4.7 3.5 - 5.0 g/dL [facility] Alkaline Phosphatase 77 39 - 117 U/L [facility] Blood Venous blood specimen / Unknown 11/10/2024 1:25 PM EST 11/10/2024 4:00 PM EST Rosa Chambers DO LAB BLOOD ORDERABLES Final R esult Performing Organization Address City/[facility] Co de Phone Number [facility] [address] [place] [address] [phone] Lipid Panel, Standard (11/10/2024 1:25 PM EST) Triglycerides 100 <150 mg/dL [facility] Comment:Desirable Triglyceri de: less than 150 mg/dLBorderline High Triglyceride 150-199 mg/dLHigh Triglyceride: 200-499 mg/dLVery High Triglyceride: greater than or equal to 5OO mg/dL Cholesterol 151 <200 mg/dL [facility] Comment:Desirable Cholestero l: less than 200 mg/dLBorderline High Cholesterol: 200-239 mg/dLHigh Cholesterol: greater than 239 mg/dL LDL Cholesterol Calculated 90 <100 mg/dL [facility] Comment:Desirable LDL: less than 100 mg/dLNear Optimal/Above Optimal LDL: 110- 129 mg/dLBorderline High LDL: 130-159 mg/dLHigh LDL: 160-189 mg/dLVery High LDL: greater than or equal to 190 mg/dL HDL Cholesterol 41 >40 mg/dL [facility] Comment:Desirable HDL: great er than 40 mg/dL Note: This HDL assay may give artificially low results in patients with liver disease. Blood Venous blood specimen / Unknown 11/10/2024 1:25 PM EST 11/10/2024 4:00 PM EST us Rosa Chambers DO LAB BLOOD ORDERABLES Final R esult [facility] [address] [place] [phone] * Basic Metabolic Panel (11/10/2024 1:25 PM EST) Sodium 141 135 - 145 mmol/L [facility] Potassium 4.0 3.3 - 5.1 mmol/L [facility] Chloride 107 96 - 108 mmol/L [facility] Carbon Dioxide 26 22 - 29 mmol/L [facility] Anion Gap 12 12 - 20 [facility] Urea Nitrogen (BUN) 16 9 - 16 mg/dL [facility] Creatinine, Serum 0.90 0.5 - 1.4 mg/dL [facility] Estimated Glomerular Filt Rate >60 [facility] Comment:Chronic Kidney Disea se: Estimated GFR < 60 mL/min/[id number] Kidney Disease: Estimated GFR < 15 mL/min/1.73m2 Glucose 89 60 - 115 mg/dL [facility] Calcium 9.9 8.4 - 10.2 mg/dL [facility] Blood Venous blood specimen / Unknown 11/10/2024 1:25 PM EST 11/10/2024 4:00 PM EST Rosa Chambers DO LAB BLOOD ORDERABLES Final R esult [facility] [address] [place] [phone] * XR Humerus Left (11/10/2024 12:40 PM EST) Anatomical Region Laterality Modality Upper Extremities, Humerus Left Radio graphic Imaging 11/10/2024 12:4 0 PM EST Narrative 11/10/2024 1:04 PM EST ?[facility] ?[address] ?[place] [address] ?XRay Report ? Signed ? Patient: Osei Conrad,Heraclio L ?MR#: [id number] ?? [id number] ? : 1990 ?Acct:[id number] ? Age/Sex: 34 / M ?ADM Date: 11/10/24 ? Loc: HO.HHCX ? Attending Dr: Rosa Chambers DO ? Ordering Physician: Rosa Chambers DO ?? Date of Service: 11/10/24 ?? Procedure(s): XR humerus LT ?? Accession Number(s): [id number] ? cc: Rosa Chambers DO ? EXAMINATION: ??XR HUMERUS LEFT ? HISTORY: mid upper arm pain, concern for FB ? COMPARISON: There are no prior studies available for comparison. ? FINDINGS: ? AP and lateral views of the left humerus are submitted. ??Osseous ?? mineralization is normal. ??There is no fracture or dislocation. ??The ?? visualized shoulder and elbow joint spaces are preserved. ??The soft ?? tissues are unremarkable. No radiopaque foreign body is identified. ? XR/XR humerus LT ?? IMPRESSION: ? Unremarkable examination of the left humerus. No radiopaque foreign ?? body is identified. ? Electronically signed by: ??Brian Cordero MD ??11/10/2024 01:01 PM EST ?? RP ? Dictated By: ?Brian Cordero MD ? Signed By: ?<Electronically signed by Brian Cordero MD in OV> ?11/10/24 1301 ? DD/ 1240 ? TD/TT: 11/10/24 1254 ? Immigration Consultant: ? Procedure Note Keily, Image - 11/10/[address] [address] XRay Report Signed Patient: Heraclio Campos LMR#: [id number] : 1990Acct:[id number] Age/Sex: 34 / MADM Date: 11/10/24 Loc: HO.HHCX Attending Dr: Rosa Chambers DO Ordering Physician: Rosa Chambers DO Date of Service: 11/10/24 Procedure(s): XR humerus LT Accession Number(s): [id number] cc: Rosa Chambers DO EXAMINATION: XR HUMERUS LEFT HISTORY: mid upper arm pain, concern for FB COMPARISON: There are no prior studies available for comparison. FINDINGS: AP and lateral views of the left humerus are submitted. Osseous mineralization is normal. There is no fracture or dislocation. The visualized shoulder and elbow joint spaces are preserved. The soft tissues are unremarkable. No radiopaque foreign body is identified. XR/XR humerus LT IMPRESSION: Unremarkable examination of the left humerus. No radiopaque foreign body is identified. Electronically signed by: Brian Cordero MD 11/10/2024 01:01 PM EST Dictated By: Brian Cordero MD Signed By: <Electronically signed by Brian Cordero MD in OV> 11/10/24 1301 DD/ 1240 TD/TT: 11/10/24 1254 Immigration Consultant: Rosa Chambers DO IMG XR PROCEDURES Edited Res ult - Final from Last 3 Months Insurance [facility] C[facility] FULL Care Teams Community Health Nurse Supervisor Relationship Specialty Start Date End Date Brenda Robbins MD [address] [place] [address] PCP - General Family Medicine 03/05/19
--- OUTSIDE RECORDS SUMMARY | 2025-01-26 12:03 | XMS_ITS | Encounter Summary ---
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 Name Role Phone Brenda Robbins MD Primary Care Provide r Reason for Visit * Reason Onset Date Comments No Show 01/19/2025 Encounter Details Date Type Department Care Team ([facility] st Contact Info) Description 01/19/2025 Telephone [facility] [address] [place], [place] [phone] Brenda Robbins MD [address] [place], [place] [phone] No Show Social History Tobacco Use Types Packs/Day Years [...] encounter Miscellaneous Notes * Telephone Encounter - Yaritza Guerrero - 01/19/2025 10:11 AM EDT Pt no showed to appt on 01/19/25 documented in this encounter Plan of Treatment Upcoming Encounters Date Type Department Care Team (Late st Contact Info) Description 03/11/2025 11:00 AM EDT Office Visit [facility] [address] [place] [phone] Brenda Robbins MD [address] [place] [phone] documented as of this encounter Visit Diagnoses Not on filedocumented in this encounter Additional Health Concerns Assessment Noted Time PHQ-9 Depression Total Score: 0 11/10/19 11:59 AM EST documented as of this encounter Care Teams Race Car Mechanic Relationship Specialty Start Date End Date Brenda Robbins MD [address], [place] [phone] PCP - General Family Medicine 03/05/19 documented as of this encounter
== END 2025-01-26 10:10 | disposition home or self-care (01) ==
LOC: HO.XRAY 10:09
PROVIDERS: Visit Provider Family Medicine
DX: R13.10 Dysphagia, unspecified (principal)
CPT/HCPCS: 74221

== ENCOUNTER → 2025-01-26 10:11 | Outpatient (BNV) | payer MEDICAID, SELFPAY | PROVIDERS: Visit Provider Radiology Diagnostic Radiology | DX: R13.10 Dysphagia, unspecified (principal); K21.9 Gastro-esophageal reflux disease without esophagitis | CPT/HCPCS: 74221 ==